=== PATIENT | female | born 1955 | race Caucasian/White ===

== ENCOUNTER → 2019-08-30 08:15 | Outpatient (CLI) | payer MEDICARE, SELFPAY ==
--- NOTE | ~2019-08-30 | XR_ITS ---
EXAMINATION: XR thoracic spine 2V DATE: 08/30/2019 11:07 INDICATION: Back pain TECHNIQUE: AP, lateral and lateral swimmer's views of the thoracic spine were obtained. COMPARISON: None. FINDINGS: The bones are osteopenic which limits the sensitivity for fracture however none is seen. Th e vertebral body heights and alignment are normal. There is mild loss of intervertebral disc space he ight at several levels in the thoracic spine. A vascular stent is noted in the right axilla. Coronary artery stents are also noted. IMPRESSION: 1. Mild osteoarthritis without evidence of acute abnormality. Reviewed, dictated and finalized at location A. Y OPERATOR
--- NOTE | ~2019-08-30 | MR_ITS ---
EXAMINATION: MR thoracic spine wo con EXAM DATE: 08/30/2019 09:11 INDICATION: Mid upper back pain since fall 2018. TECHNIQUE: Multi-sequential, multiplanar MR images of the thoracic spine were obtained without contra st. Sagittal T1, T2, T2 fat saturation, axial T2 weighted images reviewed. There is no prior study for comparison. FINDINGS: There is mild chronic compression fracture superior endplate of T10. There is no more than mild scattered thoracic disc disease. The thoracic central canal and neural foramen are widely patent . Several small vertebral body hemangiomas. There is mild thoracic facet arthropathy. The spinal cord signal intensity and intrinsic morphology is normal. Paraspinal soft tissue is unremarkable. IMPRESSION: 1. T10 mild chronic compression fracture. 2. Mild thoracic spondylosis. Reviewed, dictated and finalized at location A. 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
== END ==
PROVIDERS: Visit Provider Physician Assistant Medical
DX: M47.814 Spondylosis without myelopathy or radiculopathy, thoracic region (principal); S22.070A Wedge compression fracture of T9-T10 vertebra, initial encounter for closed fracture
CPT/HCPCS: 72070; 72146

== ENCOUNTER 2020-01-20 10:04 | Emergency (ER) | payer MEDICARE, SELFPAY ==
--- NOTE | ~2020-01-20 | XR_ITS ---
EXAMINATION: XR chest 1V portable DATE: 01/20/2020 11:28 INDICATION: Fever. TECHNIQUE: A single frontal view of the chest was obtained. COMPARISON: None. FINDINGS: The chest demonstrates clear lungs without pneumonia, pleural effusion, or pneumothorax. Th e heart size is normal. There are old healed right rib fractures. There is a vascular stent overlying the right scapula. IMPRESSION: 1. No acute cardiopulmonary disease. Reviewed, dictated and finalized at location A.
[2020-01-20 10:08] VITALS: BP 109/73; PULSE 97; RESP 16; TEMP 35.8; O2SAT 99
[2020-01-20 11:25] LABS: Basophils Percent Auto 0.3 % (0.2-1.2); Eosinophils Absolute Auto 0.1 K/mm3 (0-0.3); Eosinophils Percent Auto 0.7 % (0-4.4); Hematocrit 37.1 % (37.0-47.0); Immature Granulocyte Absolute 0.07 K/mm3 (0.00-0.031); Immature Granulocyte Percent A 0.6 % (0-0.5); Lymphocytes Absolute Auto 1.32 K/mm3 (0.9-3.2); Lymphocytes Percent Auto 11.1 % (18.3-44.2); Mean Corpuscular HGB Conc 32.3 g/dl (32-36); Mean Corpuscular Hemoglobin 32.6 pg (26-34); Mean Corpuscular Volume 100.8 fl (80-100); Mean Platelet Volume 8.7 fl (7.4-10.4); Monocytes Absolute Auto 1.2 K/mm3 (0.1-0.6); Monocytes Percent Auto 10.2 % (2.6-8.5); Neutrophils Absolute Auto 9.2 K/mm3 (1.3-6.7); Neutrophils Percent Auto 77.1 % (45.5-73.1); Platelet Count Result 408 k/mm3 (150-375); Red Blood Count 3.68 M/mm3 (4.2-5.4); Red Cell Distribution Width 15.2 % (11.5-14.5); White Blood Count 11.9 K/mm3 (4.5-10.0)
[2020-01-20 11:38] LABS: Partial Thromboplastin Time 49.5 SECONDS (22.3-36.8)
[2020-01-20] MEDS: SODIUM CHLORIDE 0.9% IV 500 ML 999 ML IV CONT (11:44)
[2020-01-20 11:45] LABS: Lipase 144 U/L (23-300)
[2020-01-20 11:49] LABS: Alanine Aminotransferase 15 U/L (4-35); Albumin Level 4.2 g/dL (3.5-5.1); Alkaline Phosphatase 90 U/L (38-126); Aspartate Amino Transferase 27 U/L (14-36); Bilirubin,Total 0.4 mg/dL (0.2-1.3); Blood Urea Nitrogen 22 mg/dL (7-17); CRP 3.3 mg/dL (<1.0); Calcium 10.1 mg/dL (8.4-10.2); Carbon Dioxide 18 mmol/L (22-30); Chloride 104 mmol/L (98-107); Estimated CRCL calculation 30 ml/min; Estimated Glomerular Filt Rate 35; Glucose 184 mg/dL (65-105); Potassium 4.6 mmol/L (3.4-5.0); Sodium 133 mmol/L (137-145)
[2020-01-20 11:51] LABS: Add Urine Microscopic? YES; Appearance Urine Cloudy (Clear); Bacteria Urine 4+ /hpf; Bilirubin Urine Negative (Negative); Blood Urine 2+ (Negative); Color Urine Yellow (Yellow); Glucose Urine UA Negative (Negative); Ketones Urine Negative (Negative); Leukocyte Esterase Ur 1+ LEU/UL (Negative); Mucus Urine Rare /lpf; Nitrate Urine Positive (Negative); Protein Urine 2+ mg/dL (Negative); Specific Grav Ur 1.017 (1.001-1.035); Squamous Epithelial Cell Urine Occasional /hpf (Few); Transitional Epi Cells Urine Rare /hpf (None Seen); Urobilinogen Urine Negative mg/dL (<2.0); WBC Urine 31-50 /hpf
[2020-01-20 12:45] VITALS: BP 106/52; PULSE 80; RESP 17; TEMP 37.3; O2SAT 98
[2020-01-20 14:25] VITALS: BP 105/76; PULSE 87; RESP 17; O2SAT 98
--- NOTE | 2020-01-20 15:01 | ED.FEVER ---
HPI - Fever General Chief Complaint: Fever <YELENA Martinez Last Filed: 01/20/20 15:06> Stated Complaint: fever, h/o kidney transplant <YELENA Martinez Last Filed: 01/20/20 15:06> Time Seen by Provider: 01/20/20 10:43 <YELENA Martinez Last Filed: 01/20/20 15:06> Source: patient <YELENA Martinez Last Filed: 01/20/20 15:06> Mode of arrival: ambulatory <YELENA Martinez Last Filed: 01/20/20 15:06> Limitations: no limitations <YELENA Martinez Last Filed: 01/20/20 15:06> History of Present Illness HPI Narrative: Patient is a 64-year-old female who presents to emergency department for evaluation of fever that has been present now off and on for the last several weeks was treated for 3 weeks for urinary tract infection by her transplant team and had a kidney transplant a year ago and is followed by [facility]. Patient on arrival to emergency department denies any pain and notes that she gets intermittent fevers. Patient is concerned that she may still have a urinary tract infection . Patient denies vomiting or other complaints and is resting comfortably in the room upon arrival <YELENA Martinez Last Filed: 01/20/20 15:06> MD elicited complaint: fever <YELENA Martinez Last Filed: 01/20/20 15:06> Related Data Home Medications: Home Medications Medication Instructions Recorded Confirmed aspirin PO 01/20/20 cholecalciferol (vitamin D3) 01/20/20 clopidogrel 01/20/20 duloxetine [Cymbalta] mg PO 01/20/20 famotidine 01/20/20 metformin mg 01/20/20 metoprolol tartrate 01/20/20 mycophenolate sodium PO 01/20/20 prednisone 01/20/20 rosuvastatin mg 01/20/20 sulfamethoxazole-trimethoprim 01/20/20 tacrolimus [Envarsus XR] PO 01/20/20 <YELENA Martinez Last Filed: 01/20/20 15:06> Allergies/Adverse Reactions: Allergies Allergy/AdvReac Type Severity Reaction Status Date / Time levofloxacin Allergy Unknown Swelling Verified 01/20/20 11:19 of Lip/Tongue/Throat <Angelo Shrestha PA-C - Last Filed: 01/20/20 15:06> Review of Systems Review of Systems: All systems reviewed & are unremarkable except as noted in HPI and below <Angelo Shrestha PA-C - Last Filed: 01/20/20 15:06> PMFSH Past Medical History Medical History: Medical History (Updated 01/20/20 @ 15:03 by Angelo Shrestha PA-C) Chronic kidney disease Diabetes mellitus <Angelo Shrestha PA-C - Last Filed: 01/20/20 15:06> Surgical History Surgical History: Surgical History (Updated 01/20/20 @ 15:03 by Angelo Shrestha PA-C) Kidney transplant recipient <Angelo Shrestha PA-C - Last Filed: 01/20/20 15:06> Family History Family History: Family History (Updated 04/23/18 @ 08:48 by DOCTOR UNKNOWN) Other Family history of malignant neoplasm Hypertension <Angelo Shrestha PA-C - Last Filed: 01/20/20 15:06> Social History Social History: Social History Smoking status: Former smoker Smoking end date: 07/16/15 Alcohol intake: never Gender identity (if verbalized by the patient): Female <Angelo Shrestha PA-C - Last Filed: 01/20/20 15:06> Exam Narrative: Exam Narrative: GENERAL: Well-appearing, well-nourished, and in no acute distress. HEAD: Normocephalic, atraumatic. EYES: PERRLA and EOMI. ENT: Nares clear, no rhinorrhea or epistaxis. Mucous membranes moist. Oropharynx without tonsillar hypertrophy exudate or other lesions. NECK: Supple. No adenopathy or masses. CHEST: Clear to auscultation. No respiratory distress. No wheezes rales or rhonchi HEART: Regular rate and rhythm. No murmur heard. Normal peripheral pulses. ABDOMEN: Soft, nontender, nondistended. EXTREMITIES: Normal range of motion. No edema. SKIN: Warm, dry, no rash. NEURO: No focal deficits. Alert and oriented x3. Cranial
[2020-01-20] MEDS: SODIUM CHLORIDE 0.9% IV 1,000 ML 150 ML IV CONT (15:20)
[2020-01-20 15:35] VITALS: TEMP 37.2
--- NOTE | 2020-01-20 15:35 | PC.NURSE ---
Liya access line calls with [facility] [phone] at this time
[2020-01-20 17:42] VITALS: BP 108/76; PULSE 82
[2020-01-20 18:40] VITALS: BP 109/57; PULSE 92; RESP 20; O2SAT 100
== END 2020-01-20 18:41 | disposition short-term general hospital (02) ==
PROVIDERS: Emergency Medicine Emergency Medical Services; Emergency Provider Emergency Medicine; PCP Internal Medicine Rheumatology
DX: N39.0 Urinary tract infection, site not specified (principal); E11.22 Type 2 diabetes mellitus with diabetic chronic kidney disease; N18.9 Chronic kidney disease, unspecified; Z79.84 Long term (current) use of oral hypoglycemic drugs; Z79.82 Long term (current) use of aspirin; Z94.0 Kidney transplant status; Z87.891 Personal history of nicotine dependence
CPT/HCPCS: 36415; 71045; 80053; 81001; 83605; 83690; 85025; 85610; 85730; 86140; 87040; 87077; 87086; 87088; 87186; 96361; 96365; 99285; J0696; J7030; J7040

== ENCOUNTER 2022-01-24 11:08 | Emergency (ER) | payer MEDICARE, SELFPAY ==
[2022-01-24 11:11] VITALS: BP 123/53; PULSE 91; RESP 17; TEMP 36.4; O2SAT 100
--- NOTE | 2022-01-24 12:07 | ED.NAVMDI ---
HPI - Nausea/Vomiting/Diarrhea General Chief complaint: Nausea/Vomiting/Diarrhea Stated complaint: diarrhea for like a month Time Seen by Provider: 01/24/22 12:01 History of Present Illness HPI Narrative: 66-year-old female presents emergency room secondary diarrhea appears been on for approximately a month. She had no associated nausea vomiting with this. Denies any blood in her stool. She states she was on a course of antibiotics before all this started. She states that she is already been seen by her regular physician and had a stool sample obtained. They called in some medication to her pharmacy and she is not sure what those are. However they apparently were not approved by her insurance. She been drinking a lot of Gatorade. She is not taking anything like yogurt or probiotic to try to replenish your gut vaughn. She is concerned because she is a renal transplant patient having undergone a renal transplant in May 2019. She denies any chills or fevers. No one else at home has been sick. She states she just been feeling rundown and fatigued lately. Related Data Home Medications Medication Instructions Recorded Confirmed aspirin 325 mg tablet,delayed PO 01/20/20 release cholecalciferol (vitamin D3) 50 01/20/20 mcg (2,000 unit) capsule clopidogrel 75 mg tablet 01/20/20 duloxetine 60 mg capsule,delayed mg PO 01/20/20 release (Cymbalta) famotidine 20 mg tablet 01/20/20 metformin 500 mg tablet mg 01/20/20 metoprolol tartrate 25 mg tablet 01/20/20 mycophenolate sodium 360 mg PO 01/20/20 tablet,delayed release prednisone 5 mg tablet 01/20/20 rosuvastatin 40 mg tablet mg 01/20/20 sulfamethoxazole 800 01/20/20 mg-trimethoprim 160 mg tablet tacrolimus 1 mg tablet,extended PO 01/20/20 release 24 hr (Envarsus XR) Allergies Allergy/AdvReac Type Severity Reaction Status Date / Time levofloxacin Allergy Unknown Swelling Verified 01/24/22 11:25 of Lip/Tongue/Throat Review of Systems Review of Systems: CONSTITUTIONAL: Denies fever, chills, or sweats. EYES: Denies visual changes, redness, or discharge. ENT: Denies rhinorrhea, congestion, sore throat, or otalgia. CARDIOVASCULAR: Denies chest pain, palpitations, or edema. RESPIRATORY: Denies cough or dyspnea. GASTROINTESTINAL: Denies abdominal pain, nausea, vomiting. Having multiple episodes of diarrhea per day with no blood in GENITOURINARY: Denies dysuria or hematuria. SKIN: Denies rash or itching. MUSCULOSKELETAL: Denies back pain, joint pain, or myalgia. NEUROLOGIC: Denies headache, numbness, or weakness. PSYCHIATRIC: Denies anxiety or depression. PENDING SALE TO [facility] Past Medical History Medical History Chronic kidney disease Diabetes mellitus Surgical History Surgical History Kidney transplant recipient Family History Family History Other Family history of malignant neoplasm Hypertension Social History Social History Smoking status: Former smoker Smoking end date: 07/16/15 Alcohol intake: never Gender identity (if verbalized by the patient): Female Exam Narrative: APPEARANCE: Well appearing, no pain or distress, well-nourished. Head Normocephalic and atraumatic. EYES: PERRLA/EOMI, conjunctivae clear. NOSE: Normal with no drainage EARS:TMS clear with [place], with good light reflex. THROAT: Pharynx clear, no exudate. NECK: Supple. No adenopathy, no masses. RESPIRATORY: Airway patent, respirations nonlabored. Clear to auscultation bilaterally, no rales, rhonchi, wheezing. CARDIOVASCULAR: Regular rate and rhythm without murmurs, rubs, or gallops. ABDOMINAL: Soft, nontender, nondistended, no hepatosplenomegaly Musculoskeletal: Moves all extremities. Strength/ROM intact, No edema, No calf tenderness.
[2022-01-24] MEDS: SODIUM CHLORIDE 0.9% IV 1,000 ML 999 ML IV CONT (12:23)
[2022-01-24 12:31] VITALS: BP 116/52; PULSE 80
[2022-01-24 12:32] VITALS: BP 124/64; PULSE 81
[2022-01-24 12:33] VITALS: BP 100/59; PULSE 86
[2022-01-24 12:36] LABS: Basophils Absolute Auto 0.1 K/mm3 (0.0-0.1); Basophils Percent Auto 0.5 % (0.2-1.2); Eosinophils Absolute Auto 0.2 K/mm3 (0-0.3); Eosinophils Percent Auto 1.6 % (0-4.4); Hematocrit 43.1 % (37.0-47.0); Hemoglobin 13.6 g/dL (12.0-15.0); Immature Granulocyte Absolute 0.06 K/mm3 (0.00-0.031); Immature Granulocyte Percent A 0.4 % (0-0.5); Lymphocytes Absolute Auto 2.68 K/mm3 (0.9-3.2); Mean Corpuscular HGB Conc 31.6 g/dl (32-36); Mean Corpuscular Hemoglobin 30.1 pg (26-34); Mean Corpuscular Volume 95.4 fl (80-100); Mean Platelet Volume 9.1 fl (7.4-10.4); Monocytes Absolute Auto 1.4 K/mm3 (0.1-0.6); Monocytes Percent Auto 10.1 % (2.6-8.5); Neutrophils Absolute Auto 9.6 K/mm3 (1.3-6.7); Neutrophils Percent Auto 68.4 % (45.5-73.1); Platelet Count Result 450 k/mm3 (150-375); Red Blood Count 4.52 M/mm3 (4.2-5.4); White Blood Count 14.1 K/mm3 (4.5-10.0)
[2022-01-24 12:38] LABS: Add Urine Microscopic? YES; Appearance Urine Cloudy (Clear); Bilirubin Urine 1+ (Negative); Blood Urine 2+ (Negative); Color Urine Yellow (Yellow); Glucose Urine UA Trace mg/dL (Negative); Ketones Urine Negative (Negative); Leukocyte Esterase Ur 2+ LEU/UL (Negative); Nitrate Urine Negative (Negative); Protein Urine 1+ mg/dL (Negative); Specific Grav Ur 1.025 (1.001-1.035); Urobilinogen Urine 0.2 mg/dL (<2.0)
[2022-01-24 12:50] LABS: Bacteria Urine 4+ /hpf; Squamous Epithelial Cell Urine Many /hpf (Few); WBC Clumps Urine Present /HPF; WBC Urine >75 /hpf
[2022-01-24 12:50] LABS: Lipase 168 U/L (23-300)
[2022-01-24 13:37] LABS: Alanine Aminotransferase 10 U/L (6-35); Albumin Level 2.3 g/dL (3.5-5.1); Alkaline Phosphatase 43 U/L (38-126); Anion Gap 5 mmol/L (8-16); Aspartate Amino Transferase 24 U/L (14-36); Bilirubin,Total 0.3 mg/dL (0.2-1.3); Blood Urea Nitrogen 30 mg/dL (7-17); Calcium 5.5 mg/dL (8.4-10.2); Carbon Dioxide 16 mmol/L (22-30); Chloride 116 mmol/L (98-107); Estimated CRCL calculation 32 ml/min; Estimated Glomerular Filt Rate 45; Glucose 155 mg/dL (65-110); Potassium 3.1 mmol/L (3.4-5.0); Sodium 137 mmol/L (137-145)
[2022-01-24] MEDS: POTASSIUM CHLORIDE 20 MEQ PACKET (FOR LIQUID) 40 MEQ PO (14:09)
[2022-01-24 16:15] VITALS: BP 107/62; PULSE 70; RESP 18; O2SAT 100
== END 2022-01-24 16:17 | disposition home or self-care (01) ==
PROVIDERS: Emergency Provider Emergency Medicine; PCP Internal Medicine Rheumatology
DX: R19.7 Diarrhea, unspecified (principal); E86.0 Dehydration; E11.9 Type 2 diabetes mellitus without complications; N18.9 Chronic kidney disease, unspecified; Z79.84 Long term (current) use of oral hypoglycemic drugs
CPT/HCPCS: 36415; 80053; 81001; 83690; 85025; 87077; 87086; 87088; 87186; 96361; 96365; 99284; A9270; J0696; J7030

== ENCOUNTER 2022-09-07 11:48 | Emergency (ER) | payer MEDICARE, OTHER, SELFPAY ==
--- NOTE | ~2022-09-07 | XR_ITS ---
XR abdomen/kub 1V 09/07/2022 14:35 Indication: Looking for foreign body. Procedure: Lateral view of the abdomen Comparison: 09/07/2022 Findings: Bowel gas pattern nonobstructive with multiple radiodensities in the bowel. No linear forei gn bodies are identified. There are surgical clips in the pelvis. There is atherosclerosis. Impression: 1: No radiopaque linear foreign bodies are identified. Reviewed, dictated and finalized at location L. OR UX DEVELOPER Impression: 1: No radiopaque linear foreign bodies are identified.
--- NOTE | ~2022-09-07 | XR_ITS ---
XR abdomen/kub 1V 09/07/2022 13:39 Indication: Foreign body. Auto injector needle dislodged. Procedure: KUB Comparison: 04/22/2018 Findings: Bowel gas pattern nonobstructive. Multiple radiodensities are identified in the colon, cons istent with ingested material. Stable sclerotic lesion of the left ilium, most likely bone island. Th ere are surgical clips overlying the right pelvis. There is atherosclerosis of the splenic artery. Th ere is a metallic BB overlying the left upper abdomen of uncertain significance. No needlelike foreig n bodies. Impression: 1: Metallic BB radiodensity left upper abdomen of uncertain significance. 2: Nonobstructive bowel pattern. Reviewed, dictated and finalized at location L. AL TRANSPORTATION MANAGER Impression: 1: Metallic BB radiodensity left upper abdomen of uncertain significance. 2: Nonobstructive bowel pattern.
[2022-09-07 11:53] VITALS: BP 141/48; PULSE 73; RESP 16; TEMP 36.2; O2SAT 100
--- NOTE | 2022-09-07 12:30 | ED.SKABFB ---
HPI - Skin/Abscess/Foreign Bdy General Chief complaint: Skin/Abscess/Foreign Body Stated complaint: insulin needle broke off in skin Time Seen by Provider: 09/07/22 12:29 Source: patient Mode of arrival: ambulatory Limitations: no limitations History of Present Illness HPI narrative: Patient is a 67-year-old female with a history of hypertension, hyperlipidemia, diabetes, presenting to the emergency department for evaluation of foreign body in abdomen. Patient states that she was using her subcutaneous insulin injector when the small needle broke off into her skin overlying the upper abdomen. Patient denies any pain, redness or bleeding. She denies any abdominal pain. She denies nausea or vomiting. Related Data Home Medications Medication Instructions Recorded Confirmed aspirin 325 mg tablet,delayed PO 01/20/20 release cholecalciferol (vitamin D3) 50 01/20/20 mcg (2,000 unit) capsule clopidogrel 75 mg tablet 01/20/20 duloxetine 60 mg capsule,delayed mg PO 01/20/20 release (Cymbalta) famotidine 20 mg tablet 01/20/20 metformin 500 mg tablet mg 01/20/20 metoprolol tartrate 25 mg tablet 01/20/20 mycophenolate sodium 360 mg PO 01/20/20 tablet,delayed release prednisone 5 mg tablet 01/20/20 rosuvastatin 40 mg tablet mg 01/20/20 sulfamethoxazole 800 01/20/20 mg-trimethoprim 160 mg tablet tacrolimus 1 mg tablet,extended PO 01/20/20 release 24 hr (Envarsus XR) Allergies Allergy/AdvReac Type Severity Reaction Status Date / Time levofloxacin Allergy Unknown Swelling Verified 01/24/22 11:25 of Lip/Tongue/Throat Review of Systems Review of Systems: CONSTITUTIONAL: Denies fever, chills, or sweats. ENT: Denies rhinorrhea, congestion, sore throat, or otalgia. CARDIOVASCULAR: Denies chest pain, palpitations, or edema. RESPIRATORY: Denies cough or dyspnea. GASTROINTESTINAL: Denies abdominal pain, nausea, vomiting, or diarrhea. GENITOURINARY: Denies dysuria or hematuria. SKIN: Denies rash or itching. Denies bruising or bleeding MUSCULOSKELETAL: Denies back pain, joint pain, or myalgia. NEUROLOGIC: Denies headache, numbness, or weakness. [facility] Past Medical History Medical History Chronic kidney disease Diabetes mellitus Surgical History Surgical History Kidney transplant recipient Family History Family History Other Family history of malignant neoplasm Hypertension Social History Social History Smoking status: Former smoker Smoking end date: 07/16/15 Alcohol intake: never Gender identity (if verbalized by the patient): Female Exam Narrative: GENERAL: Awake, alert, conversant HEAD: Normocephalic, atraumatic. EYES: PERRLA and EOMI. ENT: Nares clear, no rhinorrhea or epistaxis. Mucous membranes moist. NECK: Supple. CHEST: No respiratory distress, breathing even and non labored HEART: Regular rate, sinus rhythm ABDOMEN:Non distended, non tender. No overlying erythema, no foreign body palpated. No bruising or bleeding. EXTREMITIES: Normal range of motion. No edema. SKIN: Warm, dry, no rash. NEURO:No focal deficits. Alert and oriented x3 Course Vital Signs Vital signs: Vital Signs Temperature 36.2 C L 09/07/22 11:53 Pulse Rate 73 09/07/22 11:53 Respiratory Rate 16 09/07/22 11:53 Blood Pressure 141/48 H 09/07/22 11:53 Pulse Oximetry 100 09/07/22 11:53 Oxygen Delivery Room Air 09/07/22 11:53 Temperature 36.2 C L 09/07/22 11:53 Pulse Rate 73 09/07/22 11:53 Respiratory Rate 16 09/07/22 11:53 Blood Pressure 141/48 H 09/07/22 11:53 Pulse Oximetry 100 09/07/22 11:53 Oxygen Delivery Room Air 09/07/22 11:53 MDM - Skin/Abscess/Foreign Bdy MDM Narrative Medical decision making narrative: History
--- NOTE | 2022-09-07 15:34 | PM.CNGS ---
Assessment and Plan Assessment and plan (1) Sensation of foreign body: Code(s): R68.89 - Other general symptoms and signs Status: Acute Assessment and Plan: No obvious foreign body felt or seen on exam. KUB without correlated foreign body to the needle she describes. We recommended additionally getting a lateral view of the abdomen. I have reviewed the imaging myself and the Radiologist's impression and did not show a foreign body c/w with any needlelike structure in the subcutaneous tissue. I discussed the case with Dr. Sheldon. Okay for her to be sent home and instructed to return if she develops any redness or swelling in this area. (2) CKD (chronic kidney disease) requiring chronic dialysis: Code(s): N18.6 - End stage renal disease; Z99.2 - Dependence on renal dialysis Status: Acute (3) Hemodialysis access site with mature fistula: Code(s): Z99.2 - Dependence on renal dialysis Status: Acute (4) Antiplatelet or antithrombotic long-term use: Code(s): Z79.02 - half-way (current) use of antithrombotics/antiplatelets Status: Acute Plan I have discussed the patient's case and plan of care with Dr. Sheldon. History of Present Illness Consult details Consult date: 09/07/22 Reason for consult: other (Possible foreign body in abdomen) Requesting physician: Alicia Kelsey MD Narrative: This is a 67-year-old diabetic woman with multiple medical problems, who presented to the ER today with concerns of a foreign body in her abdomen. She had used a self-injecting needle with her insulin pen in the left upper abdomen around 11:00 am this morning. She oddly noticed that there was liquid dripping from the pen and when she released the pen from her skin, she did not see a needle on the end of the injector pen. She looked on the floor and did not see a needle. She could not definitively feel a needle in her abdomen, but was concerned it had broken off in her subcutaneous tissue, therefore she came into the ER. The ER pysician was unable to see or feel a foreign body on exam. She had ordered a KUB of the abdomen, which did not show a needlelike foreign body. Our service was consulted for possible foreign body and she was seen in the ER. There is no obvious redness or pain in the area where she had injected herself. No other complaints at this time. Review of Systems Review of Systems: All systems reviewed & are unremarkable except as noted in HPI and below PMFSH Past Medical History Medical History Antiplatelet or antithrombotic long-term use CKD (chronic kidney disease) requiring chronic dialysis Diabetes mellitus Hemodialysis access site with mature fistula Surgical History Surgical History Kidney transplant recipient Family History Family History Other Family history of malignant neoplasm Hypertension Social History Social History Smoking status: Former smoker Smoking end date: 07/16/15 Alcohol intake: never Gender identity (if verbalized by the patient): Female Meds Home Medications and Allergies Home Medications Medication Instructions Recorded Confirmed Type aspirin 325 mg tablet,delayed PO 01/20/20 History release cholecalciferol (vitamin D3) 50 01/20/20 History mcg (2,000 unit) capsule clopidogrel 75 mg tablet 01/20/20 History duloxetine 60 mg capsule,delayed mg PO 01/20/20 History release (Cymbalta) famotidine 20 mg tablet 01/20/20 History metformin 500 mg tablet mg 01/20/20 History metoprolol tartrate 25 mg tablet 01/20/20 History mycophenolate sodium 360 mg PO 01/20/20 History tablet,delayed release prednisone 5 mg tablet 01/20/20 History rosuvastatin 40 mg tablet mg 01/20/20 History sulfamethoxazole 800
== END 2022-09-07 15:30 | disposition home or self-care (01) ==
PROVIDERS: Emergency Provider Emergency Medicine; PCP Internal Medicine Rheumatology
DX: Z04.89 Encounter for examination and observation for other specified reasons (principal); E11.22 Type 2 diabetes mellitus with diabetic chronic kidney disease; I12.0 Hypertensive chronic kidney disease with stage 5 chronic kidney disease or end stage renal disease; N18.6 End stage renal disease; E78.5 Hyperlipidemia, unspecified; Z94.0 Kidney transplant status; Z99.2 Dependence on renal dialysis; Z87.891 Personal history of nicotine dependence; Z79.82 Long term (current) use of aspirin; Z79.84 Long term (current) use of oral hypoglycemic drugs; Z79.4 Long term (current) use of insulin
CPT/HCPCS: 74018; 99283

== ENCOUNTER 2023-01-15 22:54 | Inpatient (IN) | payer MEDICARE, OTHER, SELFPAY ==
--- NOTE | ~2023-01-15 | XR_ITS ---
Portable chest x-ray Comparison: 01/20/2020 Clinical History: Leukocytosis Findings: Lungs are clear, without focal consolidation or pleural effusion. Cardiomediastinal silho uette is stable. Chronic rib fracture deformities are noted. Impression: Clear lungs. Reviewed, dictated and finalized at [facility]. Impression: Clear lungs.
--- NOTE | ~2023-01-15 | CT_ITS ---
EXAMINATION: CT cervical spine wo con DATE: 01/16/2023 02:15 INDICATION: Head injury TECHNIQUE: Computed tomography (CT) of the cervical spine was performed without intravenous contrast. The dose-length product (DLP) was 232.15 mGy-cm. Automated exposure control and iterative reconstruc tion technique were employed. COMPARISON: None FINDINGS: There are 2 mm of retrolisthesis of C5 on C6. There is no fracture. There is moderate loss of intervertebral disc space height at C3-4 and C5-C6. The odontoid process is intact. Small degenera tive osteophytes project from the anterior endplates of multiple vertebral bodies. There is multileve l moderate facet and uncovertebral joint osteoarthritis. IMPRESSION: 1. Moderate cervical spondylosis without acute findings. Reviewed, dictated and finalized at location A.
--- NOTE | ~2023-01-15 | CT_ITS ---
EXAMINATION: CT brain wo con INDICATION: Head injury COMPARISON: None TECHNIQUE: Standard unenhanced head CT. The dose-length product (DLP) was 605.33 mGy-cm. The mA was a djusted according to patient size. Iterative reconstruction technique was employed. FINDINGS: There is no intracranial hemorrhage, acute infarction, or abnormal mass lesion. The ventric les are normal. There is no abnormal mass effect or midline shift. The orozco-white matter differentiat ion is normal. The basal cisterns are patent. Calcified intracranial atherosclerosis is noted. Change s in the left globe are likely from ocular lens surgery. There is mild mucosal thickening of the para nasal sinuses. IMPRESSION: 1. No acute intracranial abnormality. Reviewed, dictated and finalized at location A.
--- NOTE | ~2023-01-15 | US_ITS ---
EXAMINATION: US renal BI DATE: 01/17/2023 09:16 INDICATION: Kidney disease. TECHNIQUE: Multiple ultrasound grayscale images of the kidneys were obtained. COMPARISON: None. FINDINGS: The right kidney measures 8.0 x 4.8 x 4.2 cm. The left kidney measures 8.0 x 4.2 x 4.3 cm. The kidney s demonstrate increased parenchymal echogenicity, consistent with nonspecific nephropathy. There is n o hydronephrosis. The bladder is decompressed. There is a transplant kidney in the right pelvis measuring 11.2 x 5.6 x 4.8 cm. No hydronephrosis. IMPRESSION: 1. Normal transplant kidney. No hydronephrosis. Reviewed, dictated and finalized at location A.
[2023-01-15 23:02] VITALS: BP 110/58; PULSE 102; RESP 14; TEMP 37.4; O2SAT 100
[2023-01-15 23:05] LABS: Glucose Point of Care 401 mg/dl (65-105)
[2023-01-15 23:27] LABS: Basophils Absolute Auto 0.1 K/mm3 (0.0-0.1); Basophils Percent Auto 0.5 % (0.2-1.2); Eosinophils Absolute Auto 0.3 K/mm3 (0-0.3); Eosinophils Percent Auto 1.4 % (0-4.4); Hematocrit 40.7 % (37.0-47.0); Hemoglobin 13.7 g/dL (12.0-15.0); Immature Granulocyte Percent A 0.5 % (0-0.5); Lymphocytes Absolute Auto 3.91 K/mm3 (0.9-3.2); Lymphocytes Percent Auto 20.6 % (18.3-44.2); Mean Corpuscular HGB Conc 33.7 g/dl (32-36); Mean Corpuscular Hemoglobin 30.9 pg (26-34); Mean Corpuscular Volume 91.7 fl (80-100); Mean Platelet Volume 9.4 fl (7.4-10.4); Monocytes Absolute Auto 1.9 K/mm3 (0.1-0.6); Monocytes Percent Auto 9.8 % (2.6-8.5); Neutrophils Absolute Auto 12.8 K/mm3 (1.3-6.7); Neutrophils Percent Auto 67.2 % (45.5-73.1); Platelet Count Result 381 k/mm3 (150-375); Red Blood Count 4.44 M/mm3 (4.2-5.4); Red Cell Distribution Width 13.3 % (11.5-14.5)
[2023-01-15 23:36] LABS: Alanine Aminotransferase 31 U/L (6-35); Albumin Level 4.3 g/dL (3.5-5.1); Alkaline Phosphatase 164 U/L (38-126); Anion Gap 8 mmol/L (8-16); Aspartate Amino Transferase 33 U/L (14-36); Bilirubin,Total 0.6 mg/dL (0.2-1.3); Blood Urea Nitrogen 37 mg/dL (7-17); Calcium 9.9 mg/dL (8.4-10.2); Carbon Dioxide 26 mmol/L (22-30); Chloride 94 mmol/L (98-107); Estimated CRCL calculation 24 ml/min; Estimated Glomerular Filt Rate 32; Glucose 366 mg/dL (65-110); Magnesium 2.2 mg/dL (1.6-2.3); Phosphorus 3.1 mg/dL (2.5-4.5); Sodium 128 mmol/L (137-145)
[2023-01-15 23:39] LABS: Beta-Hydroxybutyrate/Acetoacetate 0.16 mmol/L (0.02-0.27)
[2023-01-15 23:51] VITALS: BP 120/78; PULSE 99; RESP 23; TEMP 36.6; O2SAT 98
[2023-01-16] VITALS (22 sets, daily range): BP systolic 93–121; BP diastolic 48–73; PULSE 65–97; RESP 13–26; TEMP 36.1–36.6; O2SAT 95–100; BMI 25.0
[2023-01-16 01:17] LABS: Appearance Urine Cloudy (Clear); Bilirubin Urine Negative (Negative); Blood Urine 1+ (Negative); Color Urine Yellow (Yellow); Glucose Urine UA 3+ mg/dL (Negative); Ketones Urine Negative (Negative); Leukocyte Esterase Ur 2+ LEU/UL (Negative); Need Manual Microscopic Reviewed; Nitrate Urine Positive (Negative); Non Pathogenic Casts 0-2; Protein Urine 1+ mg/dL (Negative); RBC Urine 0-2 /hpf (0-2); Specific Grav Ur 1.017 (1.001-1.035); Squamous Epithelial Cell Urine None seen /hpf (Few); Urobilinogen Urine 0.2 mg/dL (<2.0); WBC Urine >100 /hpf; pH Urine 5.5 (5.0-9.0)
[2023-01-16 01:20] LABS: Bacteria Urine 2+ /hpf
[2023-01-16 01:21] LABS: Budding Yeast Urine Present /hpf
[2023-01-16 01:22] LABS: Add Urine Microscopic? YES
--- NOTE | 2023-01-16 01:28 | ED.RECABL ---
HPI - Recheck/Abnormal Lab/Rx General Chief Complaint: Recheck/Abnormal Lab/Rx <Deann Rich PA-C - Last Filed: 01/16/23 03:27> Stated Complaint: high BS <Deann Rich PA-C - Last Filed: 01/16/23 03:27> Time Seen by Provider: 01/16/23 01:08 <Deann Rich PA-C - Last Filed: 01/16/23 03:27> Source: patient and family <Deann Rich PA-C - Last Filed: 01/16/23 03:27> Mode of arrival: wheelchair <YELENA Soni Last Filed: 01/16/23 03:27> Limitations: altered mental status <Deann Rich PA-C - Last Filed: 01/16/23 03:27> History of Present Illness HPI narrative: This is a 67-year-old female that presents to the emergency department for elevated blood sugars. Her daughter also reports she has been confused. Reports she had sustained a couple of falls yesterday. She does believe that she hit her head. She does not think that she lost consciousness. She reports that she lost her balance causing her to fall. She reports some neck pain. She denies any other focal injuries from her falls. <Deann Rich PA-C - Last Filed: 01/16/23 03:27> Related Data Home Medications: Home Medications Medication Instructions Recorded Confirmed aspirin 325 mg tablet,delayed PO 01/20/20 release cholecalciferol (vitamin D3) 50 01/20/20 mcg (2,000 unit) capsule clopidogrel 75 mg tablet 01/20/20 duloxetine 60 mg capsule,delayed mg PO 01/20/20 release (Cymbalta) famotidine 20 mg tablet 01/20/20 metformin 500 mg tablet mg 01/20/20 metoprolol tartrate 25 mg tablet 01/20/20 mycophenolate sodium 360 mg PO 01/20/20 tablet,delayed release prednisone 5 mg tablet 01/20/20 rosuvastatin 40 mg tablet mg 01/20/20 sulfamethoxazole 800 01/20/20 mg-trimethoprim 160 mg tablet tacrolimus 1 mg tablet,extended PO 01/20/20 release 24 hr (Envarsus XR) <Deann Rich PA-C - Last Filed: 01/16/23 03:27> Allergies/Adverse Reactions: Allergies Allergy/AdvReac Type Severity Reaction Status Date / Time levofloxacin Allergy Unknown Swelling Verified 01/24/22 11:25 of Lip/Tongue/Throat <Deann Rich PA-C - Last Filed: 01/16/23 03:27> Review of Systems Review of Systems: ROS unobtainable: Yes unobtainable due to mental status <Deann Rich PA-C - Last Filed: 01/16/23 03:27> PMFSH Past Medical History Medical History: Medical History Antiplatelet or antithrombotic long-term use CKD (chronic kidney disease) requiring chronic dialysis Diabetes mellitus Hemodialysis access site with mature fistula <YELENA Soni Last Filed: 01/16/23 03:27> Surgical History Surgical History: Surgical History Kidney transplant recipient <Deann Rich PA-C - Last Filed: 01/16/23 03:27> Family History Family History: Family History Other Family history of malignant neoplasm Hypertension <YELENA Soni Last Filed: 01/16/23 03:27> Social History Social History: Social History Smoking status: Former smoker Smoking end date: 07/16/15 Alcohol intake: never Gender identity (if verbalized by the patient): Female <YELENA Soni Last Filed: 01/16/23 03:27> Exam Narrative: GENERAL: Well-appearing, well-nourished, and in no acute distress. HEAD: Normocephalic, atraumatic. EYES: PERRLA and EOMI. ENT: Nares clear, no rhinorrhea or epistaxis. Mucous membranes moist. Oropharynx without tonsillar hypertrophy exudate or other lesions. Bilateral TMs pearly orozco non-bulging NECK: Supple. No adenopathy or masses. Tender to palpation of midline cervical spine CHEST: Clear to auscultation. No respiratory distress. No wheezes rales or rhonchi HEART: Regular rate and rhy
[2023-01-16] MEDS: SODIUM CHLORIDE 0.9% IV 1,000 ML 999 ML IV CONT ×2 (01:43→02:57)
[2023-01-16 02:01] LABS: Lactic Acid Reflex 2.4 mmol/L (0.7-2.0)
[2023-01-16 04:44] LABS: Reflex Lactic Acid Yes or No Add Lactic
--- NOTE | 2023-01-16 06:22 | ADMGEN ---
This patient, Alissa Ambriz, was admitted to [facility] Surg Room 332-01. Patient/family oriented to hospital policies and general routines including ID bracelet, bed and alarms, visiting hours, pain management, procedures, bathroom and other care routines, personal items, smoking policy, room service/diet, and visiting hours. Information on how to activate the Rapid Response Team has been discussed. Patient/Family are encouraged to report perceived risks to care and to ask questions if they do not understand what they are told or what they should do.
[2023-01-16 09:54] LABS: Glucose Point of Care 330 mg/dl (65-105)
[2023-01-16 11:21] LABS: Glucose Point of Care 494 mg/dl (65-105)
--- NOTE | 2023-01-16 11:27 | PC.NURSE ---
1119: PRODUCT TESTER FIBERGLASS called/left voice message and notified of patient blood glucose levels for breakfast and lunch and that home medications needed to be restarted.
[2023-01-16] MEDS: INSULIN ASPART (*BKC) 100 UNITS/ML SUB-Q ×4 (12:11→20:08)
--- NOTE | 2023-01-16 12:19 | PC.NURSE ---
Per face to face with Bernarda AUTISM MOTOR SPECIALIST at bedside, patient was given 12 units of insulin. AUTISM MOTOR SPECIALIST to review protocol and make any needed changes to the order.
[2023-01-16 12:51] LABS: Hemoglobin A1C 13.1 % (<5.7)
--- NOTE | 2023-01-16 15:13 | PM.IMHP ---
H&P: HPI History of Present Illness Date/Time: 01/16/23 15:13 Chief Complaint: AMS Narrative: This is a 67 year old female who presents to the ED with complaints of altered mentation, dizziness, and falls. She has a PMH of ESRD 2/2 Lupus for which she underwent a right renal transplant 4 years ago at [facility], diabetes type 2, hypertension, mi in 2018 with stents, anxiety and depression, and hyperlipidemia. She says she does not remember being confused but her daughter was concerned because she was saying off the wall things. She does remember having dizziness, chills, and falls though. She also reports urinary frequency but denies dysuria. She denies headache, chest pain, shortness a breath, productive cough, nausea and vomiting. She does say that she had 2 episodes of diarrhea yesterday. She follows with [facility]rology [facility], her PCP is Felicia See with [facility], and she follows with Endocrine Dr. Odell at [facility]. I requested records from Transplant Nephrology at [facility] so we can establish her baseline creatinine. I also spoke with ID pharmacist for assistance with prescribing IV antibiotics and he recommend ceftriaxone 2 g b.i.d. while we wait for culture. Last year in January she had a positive culture for Klebsiella. She also was found to be hyperglycemic on admission. She is not sure of her A1c but it sounds like she does not control her diabetes as well as she should because she says that her cutter aluminum sheet's always tries to scare her into managing her diabetes better. Sugar on arrival was in the 400s. We will get an A1c and we have her on high-dose sliding scale insulin with 18 units of Lantus at bedtime per her home regimen. Consult health promotion educator for assistance. For her antirejection medication she normally takes in Envarsus 3 mg daily. That is not on formulary here so instead we are going to transition her to tacrolimus the short-acting medication at 2 mg b.i.d.. Tacro level is ordered for the morning. Review of Systems Review of Systems: All systems reviewed & are unremarkable except as noted in HPI and below PMFSH Past Medical History Medical History (Updated 01/16/23 @ 15:37 by Bernarda Rubio, MARILY) Antiplatelet or antithrombotic long-term use CKD (chronic kidney disease) requiring chronic dialysis Diabetes mellitus Hemodialysis access site with mature fistula Surgical History Surgical History History of heart artery stent Kidney transplant recipient Family History Family History Other Family history of malignant neoplasm Hypertension Social History Social History Smoking status: Former smoker Smoking end date: 07/16/15 Alcohol intake: never Substance use: never Lack of Transportation: No Lack of Food: Never True Current Housing: I Have Housing Concerned About Future Housing: No Difficulty Paying Gas/Electric Bills: No Difficulty Paying for Meds: No Currently Unemployed: No Education: High School Diploma/GED Difficulty w/ Childcare or Family Care: No Gender identity (if verbalized by the patient): Female Spiritual care concerns: No Meds Home Medications and Allergies Home Medications Medication Instructions Recorded Confirmed Type aspirin 325 mg tablet,delayed 325 mg PO DAILY 01/20/20 01/16/23 History release cholecalciferol (vitamin D3) 50 50 mcg PO DAILY 01/20/20 01/16/23 History mcg (2,000 unit) capsule clopidogrel 75 mg tablet 75 mg PO DAILY 01/20/20 01/16/23 History duloxetine 60 mg capsule,delayed 60 mg PO DAILY 01/20/20 01/16/23 History release (Cymbalta) famotidine 20 mg tablet 20 mg PO DAILY 01/20/20 01/16/23 History metoprolol tartrate 25 mg tablet 12.5 mg PO BID 01/20/20 01/16/23 History prednisone 5 mg tablet 5 mg PO DAILY 01/20/20 01/16/23 History rosuvastati
[2023-01-16] MEDS: SODIUM CHLORIDE 0.9% IV 500 ML IV CONT (16:40)
[2023-01-16] MEDS: TACROLIMUS 0.5 MG CAPSULE 2 MG PO (16:45)
[2023-01-16 17:02] LABS: Basophils Absolute Auto 0.1 K/mm3 (0.0-0.1); Basophils Percent Auto 0.7 % (0.2-1.2); Eosinophils Absolute Auto 0.3 K/mm3 (0-0.3); Eosinophils Percent Auto 2.6 % (0-4.4); Hemoglobin 13.4 g/dL (12.0-15.0); Immature Granulocyte Absolute 0.05 K/mm3 (0.00-0.031); Immature Granulocyte Percent A 0.5 % (0-0.5); Lymphocytes Absolute Auto 2.56 K/mm3 (0.9-3.2); Lymphocytes Percent Auto 23.9 % (18.3-44.2); Mean Corpuscular HGB Conc 31.9 g/dl (32-36); Mean Corpuscular Hemoglobin 30.6 pg (26-34); Mean Corpuscular Volume 95.9 fl (80-100); Mean Platelet Volume 9.3 fl (7.4-10.4); Monocytes Absolute Auto 1.4 K/mm3 (0.1-0.6); Monocytes Percent Auto 13.4 % (2.6-8.5); Neutrophils Absolute Auto 6.3 K/mm3 (1.3-6.7); Neutrophils Percent Auto 58.9 % (45.5-73.1); Platelet Count Result 335 k/mm3 (150-375); Red Blood Count 4.38 M/mm3 (4.2-5.4); Red Cell Distribution Width 13.5 % (11.5-14.5); White Blood Count 10.7 K/mm3 (4.5-10.0)
[2023-01-16 17:05] LABS: Glucose Point of Care 326 mg/dl (65-105)
[2023-01-16 17:19] LABS: Alanine Aminotransferase 24 U/L (6-35); Albumin Level 3.5 g/dL (3.5-5.1); Alkaline Phosphatase 98 U/L (38-126); Anion Gap 11 mmol/L (8-16); Aspartate Amino Transferase 27 U/L (14-36); Bilirubin,Total 0.6 mg/dL (0.2-1.3); Blood Urea Nitrogen 27 mg/dL (7-17); Calcium 8.8 mg/dL (8.4-10.2); Carbon Dioxide 21 mmol/L (22-30); Chloride 103 mmol/L (98-107); Estimated CRCL calculation 25 ml/min; Estimated Glomerular Filt Rate 35; Glucose 334 mg/dL (65-110); Sodium 135 mmol/L (137-145)
[2023-01-16] MEDS: cefTRIAXone 2 GM/NS 100 ML 2 GM/100 ML BAG IVPB (17:55)
[2023-01-16] MEDS: SODIUM CHLORIDE 0.9% IV 1,000 ML 100 ML IV CONT (17:56)
[2023-01-16 19:49] LABS: Glucose Point of Care 299 mg/dl (65-105)
[2023-01-16] MEDS: METOPROLOL TARTRATE 12.5 MG TABLET PO (20:07)
[2023-01-16] MEDS: ROSUVASTATIN 10 MG TABLET 40 MG PO (20:07)
[2023-01-16] MEDS: INSULIN GLARGINE (*BKC) 100 UNITS/ML 18 UNITS SUB-Q (20:08)
[2023-01-17] VITALS (9 sets, daily range): BP systolic 124–171; BP diastolic 57–85; PULSE 61–69; RESP 16–18; TEMP 35.6–36.6; O2SAT 99–100; BMI 25.0
[2023-01-17] MEDS: SODIUM CHLORIDE 0.9% IV 1,000 ML 100 ML IV CONT ×2 (05:34→17:12)
[2023-01-17] MEDS: cefTRIAXone 2 GM/NS 100 ML 2 GM/100 ML BAG IVPB (05:34)
[2023-01-17 05:57] LABS: Basophils Absolute Auto 0.1 K/mm3 (0.0-0.1); Basophils Percent Auto 0.6 % (0.2-1.2); Eosinophils Absolute Auto 0.4 K/mm3 (0-0.3); Eosinophils Percent Auto 4.5 % (0-4.4); Hematocrit 38.4 % (37.0-47.0); Hemoglobin 12.1 g/dL (12.0-15.0); Immature Granulocyte Absolute 0.04 K/mm3 (0.00-0.031); Immature Granulocyte Percent A 0.5 % (0-0.5); Lymphocytes Absolute Auto 2.11 K/mm3 (0.9-3.2); Mean Corpuscular HGB Conc 31.5 g/dl (32-36); Mean Corpuscular Hemoglobin 30.3 pg (26-34); Mean Platelet Volume 9.7 fl (7.4-10.4); Monocytes Absolute Auto 1.1 K/mm3 (0.1-0.6); Monocytes Percent Auto 12.9 % (2.6-8.5); Neutrophils Absolute Auto 4.8 K/mm3 (1.3-6.7); Neutrophils Percent Auto 56.5 % (45.5-73.1); Platelet Count Result 323 k/mm3 (150-375); Red Cell Distribution Width 13.7 % (11.5-14.5); White Blood Count 8.5 K/mm3 (4.5-10.0)
[2023-01-17 06:09] LABS: Alanine Aminotransferase 22 U/L (6-35); Albumin Level 3.2 g/dL (3.5-5.1); Alkaline Phosphatase 94 U/L (38-126); Anion Gap 8 mmol/L (8-16); Aspartate Amino Transferase 25 U/L (14-36); Bilirubin,Total 0.4 mg/dL (0.2-1.3); Blood Urea Nitrogen 23 mg/dL (7-17); Calcium 8.3 mg/dL (8.4-10.2); Carbon Dioxide 21 mmol/L (22-30); Chloride 108 mmol/L (98-107); Estimated CRCL calculation 27 ml/min; Estimated Glomerular Filt Rate 38; Glucose 288 mg/dL (65-110); Phosphorus 4.3 mg/dL (2.5-4.5); Potassium 4.2 mmol/L (3.4-5.0); Sodium 137 mmol/L (137-145)
[2023-01-17 08:13] LABS: Glucose Point of Care 286 mg/dl (65-105)
[2023-01-17] MEDS: predniSONE 5 MG TABLET PO (08:15)
[2023-01-17] MEDS: ASPIRIN 325 MG ENTERIC TABLET PO (08:15)
[2023-01-17] MEDS: CLOPIDOGREL BISULFATE 75 MG TABLET PO (08:15)
[2023-01-17] MEDS: FAMOTIDINE 20 MG TABLET PO (08:15)
[2023-01-17] MEDS: CHOLECALCIFEROL 1,000 UNITS TABLET 2000 UNITS PO (08:15)
[2023-01-17] MEDS: DULoxetine HCL 30 MG CAPSULE.DR 90 MG PO (08:16)
[2023-01-17] MEDS: METOPROLOL TARTRATE 12.5 MG TABLET PO ×2 (08:16→20:14)
--- NOTE | 2023-01-17 09:20 | PM.IMPN ---
Progress Note: A&P Assessment and Plan (1) Acute metabolic encephalopathy: Code(s): G93.41 - Metabolic encephalopathy Status: Acute Assessment and Plan: Patient is awake, alert, oriented and feels back to baseline status. This problem is seemingly resolved, likely related to UTI with presentation of sepsis. (2) Acute UTI: Code(s): N39.0 - Urinary tract infection, site not specified Status: Acute Assessment and Plan: Urine culture shows Enterobacter, sensitivities pending. Rocephin changed to cefepime. Will follow sensitivities for appropriate oral antibiotics upon discharge (3) Sepsis: Qualifiers: Sepsis acute organ dysfunction status: without acute organ dysfunction Sepsis type: sepsis due to unspecified organism Qualified Code(s): A41.9 - Sepsis, unspecified organism Code(s): A41.9 - Sepsis, unspecified organism Status: Acute Assessment and Plan: Appears to be related to urinary tract infection. Lactic acidosis has resolved. White blood cell count is now normal. Stable vital signs. (4) Kidney transplant recipient: Code(s): Z94.0 - Kidney transplant status Status: Acute Assessment and Plan: Kidney transplant 4 years ago. Renal ultrasound unremarkable today. Prograf resumed and trough in process. (5) Diabetes mellitus: Code(s): E11.9 - Type 2 diabetes mellitus without complications Status: Acute Assessment and Plan: Poor glycemic control with hemoglobin A1c of 13.1. Restarted mealtime short-acting insulin as well as high-dose correction basal Lantus. (6) History of heart artery stent: Code(s): Z95.5 - Presence of coronary angioplasty implant and graft Status: Acute Assessment and Plan: Stable, no complaints of chest pain or shortness for breath. No swelling. Continue home medications. Time Spent With Patient Time with patient: Greater than 35 minutes Subjective Date/time seen: 01/17/23 09:20 Interval history: This is a 67-year-old female patient with a history lupus, type 2 diabetes, hypertension, mi with stents, anxiety, depression, hyperlipidemia and renal transplant 4 years ago who was admitted to the hospital due to altered mentation dizziness and falls. During workup patient was found to have evidence of urinary tract infection. Previously patient has had Klebsiella in the urine. She was initiated on Rocephin while awaiting urine culture. This morning culture indicates Enterobacter and after discussion with ID pharmacist antibiotics were changed to cefepime. Additionally, remainder of home medications was restarted. Patient reports poor glycemic control with her diabetes with A1c of 13.1 and blood sugars in the 400s upon admission to the hospital. Patient reports that she feels back to baseline and ready for discharge. Review of Systems Review of Systems: All systems reviewed & are unremarkable except as noted in HPI and below Cardiovascular: Cardiovascular: Denies chest pain, Denies leg edema, Denies lightheadedness and Denies palpitations Respiratory: Respiratory: Denies cough, Denies dyspnea and Denies wheezing Gastrointestinal: Gastrointestinal: Denies abdominal pain, Denies melena, Denies constipation, Denies diarrhea, Denies nausea and Denies vomiting Genitourinary: Genitourinary: Denies urinary frequency, Denies nocturia, Denies urinary incontinence, Denies urinary hesitancy and Denies urinary urgency Psychiatric: Comments: feels back to baseline Exam Narrative: General:? well-nourished, well-appearing 67-year-old female,? sitting up in bed, comfortable Neuro: awake, alert and oriented x4, speech clear, no focal neuro deficits noted HEENMT:? normocephalic, atraumatic, EOMI, sclerae anicteric, moist oral mucosa Respiratory:? Clear to auscultation bilaterally without crackles, rhonchi or wheezes, nonlabored breathing Cardio: regular rate, regular rhythm with S1-S2
[2023-01-17] MEDS: TACROLIMUS 0.5 MG CAPSULE 2 MG PO ×2 (10:41→17:12)
[2023-01-17 11:57] LABS: Glucose Point of Care 415 mg/dl (65-105)
--- NOTE | 2023-01-17 12:14 | PM.CNNEP ---
Assessment and Plan Assessment and plan (1) Status post kidney transplant: Code(s): Z94.0 - Kidney transplant status Status: Acute Assessment and Plan: received renal transplant in 2019 baseline creatinine seems to run 1.2 - 1.5mg/dl continue current immunosuppression medications (with associated changes due to availability) if necessary, consider having patient bring her Envarus from home (to ensure stability in outpatient immunosuppressive medications) renal ultrasound noted continue supportive therapy (2) Acute UTI: Code(s): N39.0 - Urinary tract infection, site not specified Status: Acute Assessment and Plan: admission UA highly suggestive follow urine culture results on antibiotic therapy (3) Sepsis: Qualifiers: Sepsis acute organ dysfunction status: without acute organ dysfunction Sepsis type: sepsis due to unspecified organism Qualified Code(s): A41.9 - Sepsis, unspecified organism Code(s): A41.9 - Sepsis, unspecified organism Status: Acute Assessment and Plan: suggestive based on low BP, lactic acidosis, and elevated WBC lactic acid improved s/p IVF resuscitation follow culture data on antibiotics (4) Altered mental status: Code(s): R41.82 - Altered mental status, unspecified Status: Acute Assessment and Plan: resolved/resolving presumably due to acute infection/UTI follow mentation (5) Diabetes mellitus: Code(s): E11.9 - Type 2 diabetes mellitus without complications Status: Acute Assessment and Plan: follow accu-cheks glycemic control per hospitalists I will continue to follow patient with you while she remains hospitalized and make further recommendations as needed. Thank you for allowing me to participate in the care of this patient. History of Present Illness Reason for Consult Consult date: 01/17/23 Reason for consult: Other (S/P renal transplant) Chief Complaint Chief complaint: uti sepsis History of Present Illness Narrative: The patient is a 67-year-old female with a past medical history as outlined below who presented to [facility] Emergency Room for further evaluation of altered mental status in association with dizziness and falls. The patient states that she does not recall being confused or altered but her daughter noted that she was making nonsensical statements. She does recall feeling somewhat dizzy in association with chills and some on and off falls. She also reports increased urinary frequency but denies dysuria. She reported no overt fevers or chills but she is on immunosuppressive therapy. Given the altered mental status and other associated symptoms, she presented to the ER for further assessment. Workup and evaluation emergency room demonstrated the patient to be hemodynamically stable and in no acute distress. Her mentation seemed to be back to baseline. Routine blood test demonstrated a normal CBC and chemistry that showed mild renal insufficiency even no critical electrolyte abnormalities. Her urinalysis was highly suggestive of urinary tract infection and was noted that her blood sugars were quite elevated as well. Given her immunocompromised status, appropriate cultures were obtained and she was started on IV antibiotic therapy with subsequent admission to the hospital for further evaluation and therapy. Renal consultation was requested due to her known history of end-stage renal disease status post renal transplantation. She follows with [facility] for management of her renal transplant. She tells me that she saw them about a month ago and was told that her kidney function was stable. For review of her records here at [facility], it would seem that her baseline creatinine runs around 1.2-1.5 mg/dL and she was able to show me on her phone that her last creatinine a month ago was 1.53 mg/dL. She is compliant with her i
[2023-01-17] MEDS: INSULIN ASPART (*BKC) 100 UNITS/ML SUB-Q ×3 (12:29→20:15)
[2023-01-17] MEDS: INSULIN ASPART (*BKC) 100 UNITS/ML 6 UNITS SUB-Q ×2 (12:30→17:13)
[2023-01-17] MEDS: CEFEPIME 1 GM/NS 50 ML 1 GM/50 ML BAG IVPB (13:41)
[2023-01-17] MEDS: ONDANSETRON INJ 4 MG/2 ML VIAL IV PUSH (15:10)
[2023-01-17 16:23] LABS: Glucose Point of Care 360 mg/dl (65-105)
--- NOTE | 2023-01-17 16:26 | PC.NURSE ---
This RN was told by Zuppler that pt blood sugar was in low 100s at time of admission of 332-2. No sliding scale given. Lunch blood sugar was 415. Called ANODE ADJUSTER and let him know why sliding scale was not given. Informed him of BG at this time, need for home insulin with meals to be resumed. ANODE ADJUSTER agreeable and ordered to give 14u novolog at this time (8u slide; 6u c meals). Will continue to monitor.
--- NOTE | 2023-01-17 18:25 | ADMGEN ---
This patient, Alissa Ambriz, was admitted to [facility] Surg Room 332-01. Patient/family oriented to hospital policies and general routines including ID bracelet, bed and alarms, visiting hours, pain management, procedures, bathroom and other care routines, personal items, smoking policy, room service/diet, and visiting hours. Information on how to activate the Rapid Response Team has been discussed. Patient/Family are encouraged to report perceived risks to care and to ask questions if they do not understand what they are told or what they should do.
[2023-01-17] MEDS: ROSUVASTATIN 10 MG TABLET 40 MG PO (20:14)
[2023-01-17] MEDS: INSULIN GLARGINE (*BKC) 100 UNITS/ML 18 UNITS SUB-Q (20:15)
[2023-01-17 20:18] LABS: Glucose Point of Care 259 mg/dl (65-105)
[2023-01-18] VITALS (8 sets, daily range): BP systolic 104–143; BP diastolic 45–58; PULSE 54–64; RESP 16–20; TEMP 35.8–36.9; O2SAT 97–100
[2023-01-18] MEDS: SODIUM CHLORIDE 0.9% IV 1,000 ML 100 ML IV CONT (05:45)
[2023-01-18 06:09] LABS: Basophils Absolute Auto 0.1 K/mm3 (0.0-0.1); Basophils Percent Auto 0.6 % (0.2-1.2); Eosinophils Absolute Auto 0.3 K/mm3 (0-0.3); Hematocrit 34.9 % (37.0-47.0); Immature Granulocyte Absolute 0.04 K/mm3 (0.00-0.031); Immature Granulocyte Percent A 0.5 % (0-0.5); Lymphocytes Absolute Auto 2.74 K/mm3 (0.9-3.2); Mean Corpuscular HGB Conc 31.5 g/dl (32-36); Mean Corpuscular Hemoglobin 30.6 pg (26-34); Mean Corpuscular Volume 97.2 fl (80-100); Mean Platelet Volume 9.6 fl (7.4-10.4); Monocytes Absolute Auto 0.9 K/mm3 (0.1-0.6); Monocytes Percent Auto 10.5 % (2.6-8.5); Neutrophils Absolute Auto 4.6 K/mm3 (1.3-6.7); Neutrophils Percent Auto 53.4 % (45.5-73.1); Platelet Count Result 307 k/mm3 (150-375); Red Blood Count 3.59 M/mm3 (4.2-5.4); Red Cell Distribution Width 13.2 % (11.5-14.5); White Blood Count 8.6 K/mm3 (4.5-10.0)
[2023-01-18 07:20] LABS: Glucose Point of Care 91 mg/dl (65-105)
[2023-01-18] MEDS: TACROLIMUS 0.5 MG CAPSULE 2 MG PO (09:01)
[2023-01-18] MEDS: CHOLECALCIFEROL 1,000 UNITS TABLET 2000 UNITS PO (09:02)
[2023-01-18] MEDS: CLOPIDOGREL BISULFATE 75 MG TABLET PO (09:02)
[2023-01-18] MEDS: predniSONE 5 MG TABLET PO (09:02)
[2023-01-18] MEDS: DULoxetine HCL 30 MG CAPSULE.DR 90 MG PO (09:02)
[2023-01-18] MEDS: METOPROLOL TARTRATE 12.5 MG TABLET PO (09:02)
[2023-01-18] MEDS: FAMOTIDINE 20 MG TABLET PO (09:02)
[2023-01-18] MEDS: ASPIRIN 325 MG ENTERIC TABLET PO (09:02)
[2023-01-18] MEDS: CEFEPIME 1 GM/NS 50 ML 1 GM/50 ML BAG IVPB (11:36)
[2023-01-18] MEDS: INSULIN ASPART (*BKC) 100 UNITS/ML 6 UNITS SUB-Q (11:37)
[2023-01-18 11:43] LABS: Glucose Point of Care 188 mg/dl (65-105)
[2023-01-18] MEDS: INSULIN ASPART (*BKC) 100 UNITS/ML SUB-Q (11:43)
[2023-01-18 11:44] LABS: Anion Gap 8 mmol/L (8-16); Blood Urea Nitrogen 20 mg/dL (7-17); Calcium 8.1 mg/dL (8.4-10.2); Carbon Dioxide 23 mmol/L (22-30); Chloride 109 mmol/L (98-107); Estimated CRCL calculation 29 ml/min; Estimated Glomerular Filt Rate 41; Glucose 89 mg/dL (65-110); Potassium 4.1 mmol/L (3.4-5.0); Sodium 140 mmol/L (137-145)
--- NOTE | 2023-01-18 12:39 | PM.DS ---
DS: Admitting Diagnosis Discharge Date 01/18/2023 Admitting Diagnosis Metabolic encephalopathy Acute UTI Sepsis Kidney transplant recipient Type 2 diabetes History of heart artery stent DS: Discharge Diagnosis Discharge Diagnosis (1) Acute metabolic encephalopathy: Code(s): G93.41 - Metabolic encephalopathy Status: Acute Assessment and Plan: Patient was admitted with confusion which resolved after 1 day hospital stay for IV antibiotics fluids. This problem is now resolved. (2) Acute UTI: Code(s): N39.0 - Urinary tract infection, site not specified Status: Acute Assessment and Plan: History of renal transplant 4 years ago following with [facility] admitted for UTI with findings sepsis. Urine culture grows Enterobacter that is sensitive to IV medication she has received hospitalized as well Bactrim that she will be discharged home on. Levaquin had better susceptibility but the patient has allergy of such. (3) Sepsis: Qualifiers: Sepsis acute organ dysfunction status: without acute organ dysfunction Sepsis type: sepsis due to unspecified organism Qualified Code(s): A41.9 - Sepsis, unspecified organism Code(s): A41.9 - Sepsis, unspecified organism Status: Acute Assessment and Plan: Resolved attributed to UTI. (4) Status post kidney transplant: Code(s): Z94.0 - Kidney transplant status Status: Acute Assessment and Plan: Patient to continue home anti-rejection schedule and follow up with transplant provider apartments on regular interval (5) Diabetes mellitus: Code(s): E11.9 - Type 2 diabetes mellitus without complications Status: Acute Assessment and Plan: Hemoglobin A1c 13.1 upon this admission. Patient is aware that her diabetes is not well controlled. Patient encouraged to take better care of her diabetes check glucose occasionally and notify her provider continues to run high. (6) History of heart artery stent: Code(s): Z95.5 - Presence of coronary angioplasty implant and graft Status: Acute Assessment and Plan: Patient on dual anti-platelet therapy which will be continued upon discharge. Plan Discharge patient on Bactrim to complete 7 day course total antibiotics. Order written for repeat renal function panel in 1 week. Patient educated on better diabetes control. DS: Summary Hospital Course Reason for hospitalization: Patient was admitted to the hospital for acute confusion found to urinary infection status post kidney transplant. Hospital Course: Renal ultrasound was unremarkable with normal findings no obstructive uropathy. Patient was treated with IV Rocephin which was later changed to IV cefepime upon identification of Enterobacter while awaiting susceptibilities. Susceptibility reports today and patient be discharged on oral Bactrim to complete a full 7 day course of antibiotic treatment. Of note, patient's glycemic control much better today and yesterday compared to the 1st couple days which also indicates infection is improving. Patient has remained afebrile while hospitalized and mental status improved after the 1st night. She is back to baseline and very anxious to be discharged home. Patient was seen in consultation by Nephrology who reports the patient is renal function is back to baseline and no further changes to plan need to be made. Time spent discussing smoking cessation with patient: 3 to 10 minutes Status at Discharge Cognitive/behavioral status at discharge: Patient is awake, alert, oriented and pleasant. Functional status at discharge: independent ambulation Time Spent with Patient Time attestation: Total time spent providing and/or coordinating discharge services: Time spent: Greater than 30 minutes Exam Narrative: General:? well-nourished, well-appearing 67-year-old female,? sitting up in bed, comfortable Neuro: awake, alert and oriented x4, speech clear, no focal n
--- NOTE | 2023-01-18 13:10 | PC.NURSE ---
Pt discharging home with antibiotics. Pt has reported no pain. Pt did not require any insulin this morning, but got insulin with lunch. Pt is back to baseline and states that she is ready to be off the alarm. Pt has been stable on her feet. Pt continues to get IV fluids. Will continue to monitor pt.
[2023-01-19 23:43] LABS: Tacrolimus Prograf 6.9 mcg/L
--- NOTE | 2023-01-22 13:09 | PC.NURSE ---
Blood cx are negative. Tacnlimus- 6.[address] Flores aware.
== END 2023-01-18 16:25 | disposition home or self-care (01) | DRG 871 ==
LOC: ANHED 01-16 03:04 → ANH3MEDSUR 01-17 06:43
PROVIDERS: Emergency Medicine; Nurse Practitioner Acute Care; Admitting Provider Internal Medicine; Emergency Provider Physician Assistant; PCP Internal Medicine Rheumatology; Visit Provider Nurse Practitioner
DX: A41.9 Sepsis, unspecified organism (principal); G93.41 Metabolic encephalopathy; N18.6 End stage renal disease; Z94.0 Kidney transplant status; I12.0 Hypertensive chronic kidney disease with stage 5 chronic kidney disease or end stage renal disease; N39.0 Urinary tract infection, site not specified; W19.XXXA Unspecified fall, initial encounter; B96.89 Other specified bacterial agents as the cause of diseases classified elsewhere; E11.65 Type 2 diabetes mellitus with hyperglycemia; E11.22 Type 2 diabetes mellitus with diabetic chronic kidney disease; I25.2 Old myocardial infarction; Z79.82 Long term (current) use of aspirin; Z95.5 Presence of coronary angioplasty implant and graft; Z87.891 Personal history of nicotine dependence; Z99.2 Dependence on renal dialysis; Z79.02 Long term (current) use of antithrombotics/antiplatelets; Z79.84 Long term (current) use of oral hypoglycemic drugs
CPT/HCPCS: 36415; 70450; 71045; 72125; 76775; 80048; 80053; 80197; 81001; 82010; 82948; 83036; 83605; 83735; 84100; 85025; 87040; 87077; 87086; 87186; 96361; 96365; 99285; A9270; J0692; J0696; J1815; J2405; J7030; J7040; J7512

== ENCOUNTER 2023-11-06 00:16 | Inpatient (IN) | payer MEDICARE, OTHER, SELFPAY ==
[2023-11-06] VITALS (10 sets, daily range): BP systolic 145–185; BP diastolic 64–88; PULSE 77–99; RESP 16–18; TEMP 36.1–36.7; O2SAT 96–100; BMI 27.6
--- NOTE | ~2023-11-06 | US_ITS ---
EXAMINATION: US abdomen limited DATE: 11/06/2023 13:56 INDICATION: Epigastric and right upper quadrant abdominal pain. TECHNIQUE: Multiple grayscale and Doppler ultrasound images of the abdomen were obtained. COMPARISON: MRCP 11/06/2023 FINDINGS: The visualized portions of the head and body of the pancreas are normal. The liver is durga l. There is normal flow in main portal vein. The gallbladder is distended and contains gallstones. Ga llbladder wall thickening is noted. There is no sonographic Blanc sign. The common duct is normal an d measures 5 mm. IMPRESSION: 1. Distended gallbladder with gallstones and gallbladder wall thickening, but no sonographic Blanc s ign. These findings are as suspicious for acute cholecystitis. Reviewed, dictated and finalized at location E. IMPRESSION: 1. Distended gallbladder with gallstones and gallbladder wall thickening, but n o sonographic Blanc sign. These findings are as suspicious for acute cholecyst itis.
--- NOTE | ~2023-11-06 | CT_ITS ---
EXAMINATION: CT abdomen pelvis w con DATE: 11/06/2023 03:38 INDICATION: Epigastric abdominal pain. TECHNIQUE: Computed tomography (CT) of the abdomen and pelvis was performed with 100 mL Omnipaque 350 intravenous contrast. Automated exposure control and iterative reconstruction technique were employe d. The dose-length product was 422.82 mGy-cm. COMPARISON: None. FINDINGS: The visualized portions of the lung bases demonstrate mild atelectasis. There is mild bronc hiectasis bilaterally. No pleural effusion. The heart size is normal. There are calcifications of the aortic valve. There are coronary artery calcifications. No pericardial effusion. There is ectasia of ascending aorta measuring 4.2 cm. The liver is normal. There are gallstones in the gallbladder, whic h is distended. Gallbladder wall thickening is noted. The common duct is mildly dilated to 9 mm. The spleen, pancreas, and adrenal glands are normal. There is severe atrophy of the kidneys. There are cy sts in the kidneys measuring up to 2.1 cm on the left. There is calcified atherosclerosis of the aort a and many of the other arteries. There is a transplant kidney in right iliac fossa with cortical thi nning. There is urothelial thickening and enhancement in the pelvis of the transplant kidney. There i s diverticulosis of the colon without evidence of diverticulitis. There are no dilated loops of bowel . The appendix is normal. There are no pathologically enlarged lymph nodes. There is no free intraper itoneal fluid. There is a chronic compression fracture of T10. There are a few benign bone islands in the spine. IMPRESSION: 1. Acute cholecystitis. 2. Mildly dilated common duct. 3. Pyelitis involving the transplant kidney. Reviewed, dictated and finalized at location E.
--- NOTE | ~2023-11-06 | MR_ITS ---
EXAMINATION: MR MRCP wo/w con/w 3D wo ind DATE: 11/06/2023 12:01 INDICATION: Epigastric abdominal pain. TECHNIQUE: Magnetic resonance imaging (MRI) of the abdomen was performed without and with 12 mL Multi Jose intravenous contrast. Sequences included coronal T2-weighted FS FSE, coronal T2-weighted FSE, a xial T1-weighted LAVA, coronal FS FIESTA, axial dual-echo T1-weighted SPGR, coronal lava-FLEX, sagitt al T2-weighted FSE, axial T2-weighted FSE, and axial DWI. Thick-slab T2-weighted FSE images were obta ined for magnetic resonance cholangiopancreatography (MRCP). Maximum intensity projection 3-D reconst ructions of the volumetric data were created by the technologist. Postcontrast sequences included cor onal LAVA-flex and time course of axial T1-weighted LAVA. COMPARISON: CT abdomen and pelvis 11/06/2023 FINDINGS: ABDOMEN MRI: The liver is normal. There are gallstones in the gallbladder, which is dilated with wall thickening and surrounding fat stranding. There are old blood products at the periphery of the splee n. The pancreas and adrenal glands are normal. There is severe atrophy of the kidneys. There are cyst s and hemorrhagic cysts in the kidneys measuring up to 2.0 cm on the right. There is a transplant kid holden in the right iliac fossa with cortical thinning. There are no dilated loops of bowel. There are n o pathologically enlarged lymph nodes. There is no free intraperitoneal fluid. ABDOMEN MRCP: The common duct is mildly dilated to 9 mm. No choledocholithiasis. IMPRESSION: 1. Acute cholecystitis. 2. Mildly dilated common duct. No choledocholithiasis. Reviewed, dictated and finalized at location E.
[2023-11-06 02:29] LABS: Basophils Absolute Auto 0.1 K/mm3 (0.0-0.1); Basophils Percent Auto 0.4 % (0.2-1.2); Eosinophils Absolute Auto 0.5 K/mm3 (0-0.3); Eosinophils Percent Auto 3.3 % (0-4.4); Hematocrit 46.2 % (37.0-47.0); Hemoglobin 15.2 g/dL (12.0-15.0); Immature Granulocyte Absolute 0.05 K/mm3 (0.00-0.031); Immature Granulocyte Percent A 0.3 % (0-0.5); Lymphocytes Absolute Auto 2.31 K/mm3 (0.9-3.2); Lymphocytes Percent Auto 14.2 % (18.3-44.2); Mean Corpuscular HGB Conc 32.9 g/dl (32-36); Mean Corpuscular Hemoglobin 31.5 pg (26-34); Mean Corpuscular Volume 95.7 fl (80-100); Mean Platelet Volume 9.5 fl (7.4-10.4); Monocytes Absolute Auto 1.1 K/mm3 (0.1-0.6); Monocytes Percent Auto 6.6 % (2.6-8.5); Neutrophils Absolute Auto 12.2 K/mm3 (1.3-6.7); Neutrophils Percent Auto 75.2 % (45.5-73.1); Platelet Count Result 325 k/mm3 (150-375); Red Blood Count 4.83 M/mm3 (4.2-5.4); Red Cell Distribution Width 12.7 % (11.5-14.5); White Blood Count 16.3 K/mm3 (4.5-10.0)
[2023-11-06 02:33] LABS: Appearance Urine Cloudy (Clear); Bacteria Urine 4+ /hpf; Bilirubin Urine Negative (Negative); Blood Urine 3+ (Negative); Color Urine Yellow (Yellow); Glucose Urine UA 3+ mg/dL (Negative); Ketones Urine 1+ mg/dL (Negative); Leukocyte Esterase Ur 2+ LEU/UL (Negative); Nitrate Urine Negative (Negative); Non Pathogenic Casts 0-2; Protein Urine 1+ mg/dL (Negative); RBC Urine 51-100 /hpf (0-2); Specific Grav Ur 1.023 (1.001-1.035); Squamous Epithelial Cell Urine None Seen /hpf (Few); WBC Urine >100 /hpf (0-3)
[2023-11-06] MEDS: SODIUM CHLORIDE 0.9% IV 1,000 ML 999 ML IV CONT ×2 (02:35→14:05)
[2023-11-06] MEDS: ONDANSETRON INJ 4 MG/2 ML VIAL IV PUSH ×2 (02:35→06:16)
[2023-11-06] MEDS: MORPHINE SULFATE (*CRX) 4 MG/ML INJ IV PUSH ×2 (02:35→06:16)
[2023-11-06 02:48] LABS: Add Urine Microscopic? YES
[2023-11-06 03:04] LABS: Alanine Aminotransferase 58 U/L (6-35); Albumin Level 4.7 g/dL (3.5-5.1); Alkaline Phosphatase 74 U/L (38-126); Anion Gap 12 mmol/L (4-12); Aspartate Amino Transferase 44 U/L (14-36); Blood Urea Nitrogen 26 mg/dL (7-17); Calcium 8.8 mg/dL (8.4-10.2); Carbon Dioxide 18 mmol/L (22-30); Chloride 107 mmol/L (98-107); Estimated CRCL calculation 32 ml/min; Estimated Glomerular Filt Rate 41; Glucose 275 mg/dL (65-110); Lipase 218 U/L (23-300); Potassium 4.4 mmol/L (3.4-5.0); Sodium 137 mmol/L (137-145)
--- NOTE | 2023-11-06 03:45 | ED.GENADULT ---
HPI - General Adult General Chief complaint: Abdominal Pain Stated complaint: gallbladder - vomiting Time Seen by Provider: 11/06/23 02:23 History of Present Illness HPI narrative: Patient is a 68-year-old female who presents emergency department with chief complaint of abdominal pain. Patient reports he has prior history of gallstones and reports that started having pain in the epigastric area reports she half of a cheeseburger and also had a slice of pizza this evening the patient reports the pain is sharp ports not improved by anything. Related Data Home Medications Medication Instructions Recorded Confirmed aspirin 325 mg tablet,delayed 81 mg PO DAILY 01/20/20 05/03/23 release cholecalciferol (vitamin D3) 50 50 mcg PO DAILY 01/20/20 05/03/23 mcg (2,000 unit) capsule clopidogrel 75 mg tablet 75 mg PO DAILY 01/20/20 01/16/23 duloxetine 60 mg capsule,delayed 60 mg PO DAILY 01/20/20 05/03/23 release (Cymbalta) famotidine 20 mg tablet 20 mg PO DAILY 01/20/20 05/03/23 metoprolol tartrate 25 mg tablet 12.5 mg PO BID 01/20/20 05/03/23 prednisone 5 mg tablet 5 mg PO DAILY 01/20/20 01/16/23 rosuvastatin 40 mg tablet 40 mg PO HS 01/20/20 05/03/23 tacrolimus 1 mg tablet,extended 3 mg PO DAILY 01/20/20 05/03/23 release 24 hr (Envarsus XR) insulin aspart U-100 100 unit/mL 6 unit subcut TID 01/16/23 05/03/23 (3 mL) subcutaneous pen (Novolog FlexPen U-100 Insulin aspart) insulin glargine 100 unit/mL 18 unit subcut HS 01/16/23 05/03/23 subcutaneous solution (Lantus U-100 Insulin) acetaminophen 500 mg tablet 1,000 mg PO QID PRN Pain, Mild 01/17/23 01/17/23 alprazolam 1 mg tablet 1 mg PO TID PRN Anxiety 01/17/23 05/03/23 tramadol 50 mg tablet 50 mg PO Q6H PRN Anxiety 01/17/23 05/03/23 Allergies Allergy/AdvReac Type Severity Reaction Status Date / Time levofloxacin Allergy Unknown Swelling Verified 05/03/23 09:00 of Lip/Tongue/Throat Review of Systems Review of Systems: A 10 system review of systems was completed on the patient and is negative except for what is stated in the HPI. Nursing and ancillary documentation was reviewed. [facility] Past Medical History Medical History Antiplatelet or antithrombotic long-term use Anxiety disorder CKD (chronic kidney disease) requiring chronic dialysis Diabetes mellitus Hemodialysis access site with mature fistula Lupus Surgical History Surgical History H/O lithotripsy H/O sinus surgery History of delivery History of heart artery stent Kidney transplant recipient Family History Family History Other Breast cancer Family history of malignant neoplasm Heart disease Hypertension Ovary cancer Social History Social History Smoking status: Former smoker Smoking end date: 07/16/15 Alcohol intake: never Substance use: never Lack of Transportation: No Lack of Food: Never True Current Housing: I Have Housing Concerned About Future Housing: No Difficulty Paying Gas/Electric Bills: No Difficulty Paying for Meds: No Currently Unemployed: No Education: High School Diploma/GED Difficulty w/ Childcare or Family Care: No Living arrangements: alone Occupation/Education: retired Gender identity (if verbalized by the patient): Female Sexual Orientation (if Verbalized by the Patient): Straight or Heterosexual Spiritual care concerns: No Exam Narrative: GENERAL: Well-appearing, well-nourished, and in no acute distress. HEAD: Normocephalic, atraumatic. EYES: PERRLA and EOMI. ENT: Nares clear, no rhinorrhea or epistaxis. Mucous membranes moist. NECK: Supple. CHEST: Clear to auscultation. No respiratory distress. HEART: Regular rate and rhythm. No murmur heard.
[2023-11-06] MEDS: SODIUM CHLORIDE 0.9% IV 1,000 ML 125 ML IV CONT ×3 (06:06→20:25)
--- NOTE | 2023-11-06 07:59 | PM.IMHP ---
H&P: HPI History of Present Illness Date/Time: 11/06/23 07:59 Chief Complaint: abdominal pain Narrative: This is a 68 year old female who presented to the ED with complaints of 10/10 abdominal pain to her RUQ. 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 Patient presents to the ER yesterday with 1 day of tenderness 10 abdominal pain located to her right lower and right upper quadrant. She describes the pain as stabbing with associated vomiting. She denies fever chills. No recent ill contact. She also reports headache and pink urine without dysuria. Currently when I see her she is not having abdominal pain as she has received IV morphine which is helping. She denies nausea at this time. I called [place] [facility] team and spoke with Dr. Howard and discussed patient's case with concerns of pyelitis and acute cholecystitis. Dr. Howard states the patient does not require transfer for the pyelitis and it is okay for her to proceed with lap choley should surgery deem it warranted. She recommended meropenem only for antibiotic coverage until cultures result. Continue Envarsus 5 mg daily as well as prednisone 5 mg daily for transplanted kidney. In the ED labs were significant for a leukocytosis of 16.3 with left shift, hemoglobin 15.2, Cr 1.30, BUN 26, glucose 275, AST 44, and ALT 58. Her UA was positive for a UTI for which urine cultures were sent and she received [address] of her abdomen and pelvis shows acute cholecystitis with a mildly dilated common bile duct and pyelitis involving the transplant kidney. She underwent HIDA scan which shows acute cholecystitis but no choledocholithiasis. She is being admitted in the setting for surgical consult for possible lap choly and IV antibiotics for pyelonephritis. Review of Systems Review of Systems: All systems reviewed & are unremarkable except as noted in HPI and below PMFSH Past Medical History Medical History Antiplatelet or antithrombotic long-term use Anxiety disorder CKD (chronic kidney disease) requiring chronic dialysis Diabetes mellitus Hemodialysis access site with mature fistula Lupus Myocardial infarction Surgical History Surgical History H/O lithotripsy H/O sinus surgery History of delivery History of heart artery stent Kidney transplant recipient Family History Family History Other Breast cancer Family history of malignant neoplasm Heart disease Hypertension Ovary cancer Social History Social History Smoking status: Former smoker Smoking end date: 07/16/15 Alcohol intake: never Substance use: never Do You Feel Safe in your Home?: Yes Lack of Transportation: No Lack of Food: Never True Current Housing: I Have Housing Concerned About Future Housing: No Difficulty Paying Gas/Electric Bills: No Difficulty Paying for Meds: No Currently Unemployed: No Education: High School Diploma/GED Difficulty w/ Childcare or Family Care: No Living arrangements: alone Occupation/Education: retired Gender identity (if verbalized by the patient): Female Sexual Orientation (if Verbalized by the Patient): Straight or Heterosexual Spiritual care concerns: No Meds Home Medications and Allergies Home Medications Medication Instructions Recorded Confirmed Type aspirin 325 mg tablet,delayed 81 mg PO DAILY 01/20/20 11/06/23 History release cholecalciferol (vitamin D3) 50 50,000 unit PO DAILY 01/20/20 11/06/23 History mcg (2,000 unit) capsule clopidogrel 75 mg tablet 75 mg PO DAILY 01/20/20 11/06/23 History duloxetine 60 mg ca
[2023-11-06] MEDS: MEROPENEM 1 GM/NS 100 ML 1 GM/100 ML BAG IVPB ×3 (09:30→21:29)
[2023-11-06] MEDS: VANCOMYCIN 1,250 MG/NS 250 ML 1,250 MG/250 ML BAG 166.67 MG IVPB (10:30)
[2023-11-06] MEDS: DULoxetine HCL 30 MG CAPSULE.DR 90 MG PO (10:33)
[2023-11-06] MEDS: FAMOTIDINE 20 MG TABLET PO (10:33)
[2023-11-06] MEDS: ASPIRIN 81 MG ENTERIC TABLET PO (10:33)
[2023-11-06] MEDS: predniSONE 5 MG TABLET PO (10:34)
[2023-11-06] MEDS: METOPROLOL TARTRATE 12.5 MG TABLET PO ×2 (10:36→20:21)
[2023-11-06 12:04] LABS: MRSA (PCR) NOT DETECTED (NOT DETECTE)
[2023-11-06 12:26] LABS: Glucose Point of Care 158 mg/dl (65-105)
[2023-11-06 13:16] LABS: Lactic Acid Reflex 2.5 mmol/L (0.7-2.0)
[2023-11-06 13:19] LABS: CRP 0.9 mg/dL (<1.0)
[2023-11-06 13:34] LABS: Procalcitonin 0.2 ng/mL
--- NOTE | 2023-11-06 14:33 | PM.CNGS ---
Assessment and Plan Assessment and plan (1) Acute cholecystitis: Code(s): K81.0 - Acute cholecystitis Status: Acute Assessment and Plan: CT scan abdomen/pelvis reviewed and shows evidence of acute cholecystitis with cholelithiasis and mildly dilated common bile duct. AST and ALT mildly elevated, but total bilirubin normal. MRCP showed acute cholecystitis, no choledocholithiasis. Abdominal US also shows evidence of cholecystitis. Her abdominal pain has improved. She still has RUQ abdominal tenderness. Discussed both nonoperative and surgical treatment options with the patient. This is her second episode of abdominal pain that has brought her into the ER related to her gallbladder. We discussed the options of proceeding with a laparoscopic cholecystectomy by Dr. Lewis under general anesthesia. Description of the procedure, risks, benefits, expected outcomes, and expected recovery were discussed with the patient in detail. We discussed the risks of bile leak and bile duct injury, liver/bowel injury, bleeding, and infection. Also discussed the possibility of having to convert to an open procedure if necessary. She does have clopidogrel listed in her home medications, but she has not been taking this for almost two months per the patient. Discussed the case with Dr. Lewis. The patient wishes to proceed with surgery. We will allow a low fat diet today and try adding her onto the surgery schedule for tomorrow. (2) Pyelitis: Code(s): N12 - Tubulo-interstitial nephritis, not specified as acute or chronic Status: Acute Assessment and Plan: Continue IV antibiotics. (3) Renal transplant recipient: Code(s): Z94.0 - Kidney transplant status Status: Acute Assessment and Plan: Patient currently on tacrolimus and prednisone. Spoke with Hospitalist who also spoke with [facility] regarding her renal transplant. They are okay with her remaining at this facility on IV antibiotics for the pyelitis. (4) Common bile duct dilation: Code(s): K83.8 - Other specified diseases of biliary tract Status: Acute Assessment and Plan: MRCP negative for choledocholithiasis. Total bilirubin normal. (5) Diabetes mellitus: Code(s): E11.9 - Type 2 diabetes mellitus without complications Status: Acute (6) Lupus: Code(s): M32.9 - Systemic lupus erythematosus, unspecified Status: Chronic (7) Immunosuppression due to drug therapy: Code(s): D84.821 - Immunodeficiency due to drugs; Z79.899 - Other skilled nursing (current) drug therapy Status: Acute Plan I have discussed the patient's case and plan of care with Dr. Lewis. Thank you for allowing us to see the patient in consultation and we will continue to follow along with you. History of Present Illness Consult details Consult date: 11/06/23 Reason for consult: other (Acute cholecystitis) Requesting physician: Alfonso Collins MD Narrative: This is a 68-year-old woman with a history of ESRD secondary to Lupus for which she underwent a right renal transplant 4 years ago at [place], diabetes type 2, hypertension, [place] in 2018 with stents, and hyperlipidemia. We were asked to see her in surgical consultation for acute cholecystitis. She came into the ER overnight for RUQ abdominal pain. She reports eating pizza for dinner last night and then around 9pm she developed epigastric and RUQ abdominal pain. Her pain quickly progressed and she developed nausea and vomiting. She reports having a similar episode of pain like this last March that brought her into [facility] for evaluation. She was told it was related to her gallstones and they recommended surgery, but could not add her onto the schedule for a few days and she opted to go home and fell out of follow-up. She has had no issues since then until last night. Labs in the ER showed a WBC count of 16,300 and mild elevated in AST and ALT. CT scan of the abdomen and pelvis showed pyelit
[2023-11-06 16:01] LABS: Reflex Lactic Acid Yes or No Add Lactic
[2023-11-06 17:14] LABS: Glucose Point of Care 252 mg/dl (65-105)
--- NOTE | 2023-11-06 18:25 | PC.NURSE ---
Pt only had one dose of meropenem given 11/06/23 AM. Unable to undo first infusion. Vancomycin given, followed by NS bolus. Pt to MRCP and ultrasound this AM. Pt denies pain; states only mild discomfort related to last night. Pt allowed to eat, seen by surgery to discuss lap katerin. Pt tolerated dinner well, still no complaints of pain. Pt agreeable to plan of care.
[2023-11-06 19:28] LABS: Hemoglobin A1C 8.1 % (<5.7)
[2023-11-06] MEDS: ACETAMINOPHEN 325 MG TABLET PO (20:19)
[2023-11-06] MEDS: ROSUVASTATIN 10 MG TABLET 40 MG PO (20:20)
[2023-11-06] MEDS: INSULIN GLARGINE (*BKC) 100 UNITS/ML 17 UNITS SUB-Q (20:24)
[2023-11-06 20:28] LABS: Glucose Point of Care 220 mg/dl (65-105)
[2023-11-07] VITALS (13 sets, daily range): BP systolic 139–181; BP diastolic 52–86; PULSE 70–77; RESP 16–25; TEMP 36.3–37.2; O2SAT 93–99
[2023-11-07] MEDS: SODIUM CHLORIDE 0.9% IV 1,000 ML 125 ML IV CONT (04:45)
[2023-11-07 06:27] LABS: Glucose Point of Care 107 mg/dl (65-105)
[2023-11-07 06:29] LABS: Basophils Absolute Auto 0.1 K/mm3 (0.0-0.1); Basophils Percent Auto 0.4 % (0.2-1.2); Eosinophils Absolute Auto 1.5 K/mm3 (0-0.3); Eosinophils Percent Auto 13.5 % (0-4.4); Hematocrit 39.7 % (37.0-47.0); Hemoglobin 12.9 g/dL (12.0-15.0); Immature Granulocyte Absolute 0.03 K/mm3 (0.00-0.031); Immature Granulocyte Percent A 0.3 % (0-0.5); Lymphocytes Percent Auto 26.8 % (18.3-44.2); Mean Corpuscular HGB Conc 32.5 g/dl (32-36); Mean Corpuscular Hemoglobin 32.1 pg (26-34); Mean Corpuscular Volume 98.8 fl (80-100); Mean Platelet Volume 9.4 fl (7.4-10.4); Monocytes Absolute Auto 1.4 K/mm3 (0.1-0.6); Monocytes Percent Auto 12.3 % (2.6-8.5); Neutrophils Absolute Auto 5.2 K/mm3 (1.3-6.7); Neutrophils Percent Auto 46.7 % (45.5-73.1); Platelet Count Result 250 k/mm3 (150-375); Red Blood Count 4.02 M/mm3 (4.2-5.4); Red Cell Distribution Width 13.4 % (11.5-14.5); White Blood Count 11.2 K/mm3 (4.5-10.0)
[2023-11-07 06:37] LABS: Alanine Aminotransferase 41 U/L (6-35); Albumin Level 3.6 g/dL (3.5-5.1); Alkaline Phosphatase 53 U/L (38-126); Anion Gap 5 mmol/L (4-12); Aspartate Amino Transferase 32 U/L (14-36); Bilirubin,Total 0.7 mg/dL (0.2-1.3); Blood Urea Nitrogen 15 mg/dL (7-17); Calcium 7.4 mg/dL (8.4-10.2); Carbon Dioxide 19 mmol/L (22-30); Chloride 114 mmol/L (98-107); Estimated CRCL calculation 37 ml/min; Estimated Glomerular Filt Rate 50; Glucose 103 mg/dL (65-110); Potassium 3.9 mmol/L (3.4-5.0); Sodium 138 mmol/L (137-145)
[2023-11-07] MEDS: MEROPENEM 1 GM/NS 100 ML 1 GM/100 ML BAG IVPB ×2 (09:35→20:55)
[2023-11-07] MEDS: DULoxetine HCL 30 MG CAPSULE.DR 90 MG PO (09:37)
[2023-11-07] MEDS: FAMOTIDINE 20 MG TABLET PO (09:37)
[2023-11-07] MEDS: predniSONE 5 MG TABLET PO (09:37)
[2023-11-07] MEDS: METOPROLOL TARTRATE 12.5 MG TABLET PO ×2 (09:37→20:55)
--- NOTE | 2023-11-07 10:04 | PHAR ---
* USE FROM HOME * Tacrolimus [Envarsus Xr] 1 mg tablet extended release 24 hr TAKE 5 TABLETS BY MOUTH DAILY POST HOLE DIGGER BEFORE BREAKFAST
[2023-11-07 11:38] LABS: Glucose Point of Care 145 mg/dl (65-105)
[2023-11-07] MEDS: LACTATED RINGERS 1,000 ML 30 ML IV CONT ×2 (13:10→15:52)
--- NOTE | 2023-11-07 13:56 | WPDHPUPDATE1 ---
History and Physical Update Update Date/Time: 11/07/23 13:56 History and Physical has been reviewed, including an updated exam of the patient. There are NO changes in the patient's condition. Risks, benefits, and alternatives have been discussed and questions answered. Patient agrees to proceed with procedure.
--- NOTE | 2023-11-07 14:23 | WPDANESEPPF ---
Anes - Initial Pre Proc Eval Procedure: Operation Date: 11/07/23 14:30 Proposed Procedures p Laparoscopic Cholecystectomy, Possible Open - Gerardo Lewis DO Date/Time: 11/07/23 14:23 Surgeon: Ingrid Foster MD Pre Op Diagnosis: UTI,Abdominal Pain,Dilated Common Bile Duct Patient Data Age: 68 Gender: F Height: 1.52 m Weight: 64.3 kg Last Vital Signs Temp 99 F 11/07/23 13:56 Pulse 77 11/07/23 13:56 Resp 16 11/07/23 13:56 BP 147/63 H 11/07/23 13:56 Pulse Ox 99 11/07/23 13:56 O2 Del Method Room Air 11/06/23 08:07 Allergies Allergy/AdvReac Type Severity Reaction Status Date / Time levofloxacin Allergy Unknown Swelling Verified 05/03/23 09:00 of Lip/Tongue/Throat Home Medications Medication Instructions Recorded Confirmed Type aspirin 325 mg tablet,delayed 81 mg PO DAILY 01/20/20 11/06/23 History release cholecalciferol (vitamin D3) 50 50,000 unit PO DAILY 01/20/20 11/06/23 History mcg (2,000 unit) capsule clopidogrel 75 mg tablet 75 mg PO DAILY 01/20/20 11/06/23 History duloxetine 60 mg capsule,delayed 90 mg PO DAILY 01/20/20 11/06/23 History release (Cymbalta) famotidine 20 mg tablet 20 mg PO DAILY 01/20/20 11/06/23 History metoprolol tartrate 25 mg tablet 12.5 mg PO Q12H 01/20/20 11/06/23 History prednisone 5 mg tablet 5 mg PO DAILY 01/20/20 11/06/23 History rosuvastatin 40 mg tablet 40 mg PO HS 01/20/20 11/06/23 History tacrolimus 1 mg tablet,extended 5 mg PO DAILY 01/20/20 11/06/23 History release 24 hr (Envarsus XR) insulin aspart U-100 100 unit/mL 6 unit subcut TID 01/16/23 11/06/23 History (3 mL) subcutaneous pen (Novolog FlexPen U-100 Insulin aspart) insulin glargine 100 unit/mL 22 unit subcut HS 01/16/23 11/06/23 History subcutaneous solution (Lantus U-100 Insulin) acetaminophen 500 mg tablet 1,000 mg PO QID PRN Pain, Mild 01/17/23 11/06/23 History alprazolam 1 mg tablet 1 mg PO TID PRN Anxiety 01/17/23 11/06/23 History tramadol 50 mg tablet 50 mg PO Q6H PRN Anxiety 01/17/23 11/06/23 History denosumab 60 mg/mL subcutaneous 60 mg subcut [id number] 11/06/23 11/06/23 History syringe (Prolia) dulaglutide 3 mg/0.5 mL 3 mg subcut WEEKLY 11/06/23 11/06/23 History subcutaneous pen injector (Trulicity) fluconazole 200 mg tablet 200 mg PO Q72H PRN infection 11/06/23 11/06/23 History (Diflucan) Laboratory Tests 11/06/23 11/06/23 11/06/23 02:20 17:10 20:11 WBC RBC Hgb Hct MCV MCH MCHC RDW Plt Count MPV Immature Gran % (Auto) Neut % (Auto) Lymph % (Auto) Gentry % (Auto) Eos % (Auto) Baso % (Auto) Lymph # (Auto) Gentry # (Auto) Eos # (Auto) Baso # (Auto) Abs Immat Gran (auto) Absolute Neuts (auto) Absolute Nucleated RBC Nucleated RBC % Sodium Potassium Chloride Carbon Dioxide Anion Gap BUN Creatinine Estim Creat Clear Calc Estimated GFR Glucose POC Capillary Glucose 252 H mg/dl 220 H mg/dl (65-105) (65-105) Hemoglobin A1c 8.1 H % (<5.7) Lactic Acid 2.0 mmol/L (0.7-2.0) Calcium Total Bilirubin AST ALT Alkaline Phosphatase Total Protein Albumin Tacrolimus 11/07/23 11/07/23 11/07/23 05:53 05:58 11:36 WBC 11.2 H K/mm3 (4.5-10.0) RBC 4.02 L M/mm3 (4.2-5.4) Hgb 12.9 g/dL (12.0-15.0) Hct 39.7 % (37.0-47.0) MCV 98.8 fl (80-100) MCH 32.1 pg (26-34) MCHC 32.5 g/dl (32-36) RDW 13.4 %
--- NOTE | 2023-11-07 15:51 | W.PM.PROC2 ---
Procedure Note - Detailed Date of Procedure 11/07/23 Pre-op Diagnosis Acute calculous cholecystitis Post-op Diagnosis Same Procedure Performed Laparoscopic Cholecystectomy Surgeon Gerardo Lewis, DO Anesthesia General and Local (0.5% bupivacaine) Indications This is a 68-year-old woman who presented to the emergency department right upper quadrant abdominal pain that started 2 days prior. Imaging in the emergency department showed evidence of acute calculous cholecystitis. She was admitted for further treatment. Decision was made to proceed with laparoscopic cholecystectomy, possible open. Findings Laparoscopic cholecystectomy was performed. The patient's gallbladder appeared acutely inflamed with hyperemia, edema, and wall thickening. There is very thick bile within the gallbladder and some stones fragments. The cystic duct appeared normal in size. The gallbladder was removed and sent to the lab for pathology. There was a branch of the cystic artery that was bleeding along the right lateral gallbladder fossa. This was controlled with the clip roasterman but then to help with hemostasis on the general oozing from the gallbladder fossa I chose to spray Surgiflo over this region. Hemostasis then appeared adequate after this. Description of Procedure Procedure as well as risks, benefits, and alternatives were discussed with patient. Written consent was obtained and placed in chart prior to procedure. The patient was brought back to surgical suite. Patient was placed in supine position on operating table. Time-out was done to confirm patient and procedure. Patient was then intubated by the anesthesia department. Abdomen was prepped and draped in sterile fashion using chlorhexidine prep. 0.5% bupivacaine with epinephrine was infiltrated at each site of incision. A 5 millimeter incision was made near the umbilicus, and a 5 millimeter Optiview trocar was advanced through the abdominal layers under direct visualization. Once inside the abdominal cavity, carbon dioxide was insufflated to create a pneumoperitoneum. The camera was inserted and the abdomen was inspected. No immediate abnormalities were identified. The patient was placed in reverse Trendelenburg position and rotated slightly to the left. An 11 millimeter incision was made in the subxiphoid region, and an 11 millimeter trocar was inserted under direct visualization. Two 5 millimeter incisions were made in the right upper quadrant, and two 5 millimeter trocars were inserted under direct visualization. The gallbladder was identified and grasped at the fundus and retracted superiorly. It was then grasped at the infundibulum retracted laterally. Careful dissection around the neck of the gallbladder was performed using blunt dissection with a [place] grasper and hook electrocautery. The cystic duct was identified, and a window was created behind it. The cystic artery was also identified and a window was created behind it. The critical view of safety was identified, visualizing the cystic duct running directly into the neck of the gallbladder, and the cystic artery running directly into the wall of the gallbladder. A 5 millimeter clip roasterman was then used to place 2 clips proximally and 1 clip distally on both the cystic duct and cystic artery. They were then both transected using endoscopic scissors. Once safely away from the elaina hepatitis, the gallbladder was dissected free from the liver bed using hook electrocautery. Hemostasis was achieved along the way. The gallbladder was removed completely and then removed through the subxiphoid port. The liver bed was then inspected. Hemostasis appeared adequate, and our clips appeared secure. The area was gently irrigated with sterile saline. No other abnormalities were seen. The patient was flattened out in bed, and 1 final inspection was made around the abdominal cavity. The subxiphoid port was removed, and a Andrew Luz cone was used to
--- NOTE | 2023-11-07 16:24 | P.PNIM_ITS ---
Progress Note: A&P Assessment and Plan (1) Pyelitis: Code(s): N12 - Tubulo-interstitial nephritis, not specified as acute or chronic Status: Acute Assessment and Plan: CT imaging concerning for pyelitis of transplanted kidney * leukocytosis of 16.3 with left shift, afebrile * Cr 1.3, BUN 26 * lactic elevated at 2.5 * blood culture pending * UC showing E.coli * continue meropenem * IVF NS at 125 ml per hr * Case discussed with Dr Howard at [facility] transplant (2) Acute cholecystitis: Code(s): K81.0 - Acute cholecystitis Status: Acute Assessment and Plan: With RUQ pain, CT abdomen and pelvis shows acute cholecystitis * RUQ ultrasound and HIDA scan ordered overnight * general surgery performed lap katerin today * on broad spectrum antibiotics * blood cultures pending * Tylenol PRN for mild pain or fever * morphine 2-4 mg q 4 hours for pain (3) Acute UTI: Code(s): N39.0 - Urinary tract infection, site not specified Status: Acute Assessment and Plan: UA positive for UTI * meropenem given concerns for pyelitis in renal txp * urine culture showing E.coli (4) Diabetes mellitus: Code(s): E11.9 - Type 2 diabetes mellitus without complications Status: Chronic Assessment and Plan: Last A1C from 01/2023 was 13%. On Lantus 22 units, Novolog 6 units TID with meals, and Trulicity. * a1c 8.1 * Accu checks Q 6 hours while NPO * Low dose NPO SSI insulin * Decreased home Lantus by 20%. Now receiving 17 units nightly. (5) Status post kidney transplant: Code(s): Z94.0 - Kidney transplant status Status: Acute Assessment and Plan: S/P renal transplant at [facility] * continue Envarsus 5 mg XR daily * check Prograf level * continue prednisone 5 mg daily * discussed with transplant pharmacy cashier Subjective Date/time seen: 11/07/23 16:24 Interval history: Patient is doing well this morning, in no distress. Denies pain this morning. She had a lap katerin this afternoon, general surgery is following. Will continue AB therapy and await culture results. Review of Systems Review of Systems: All systems reviewed & are unremarkable except as noted in HPI and below Exam Narrative: General: well appearing, appears stated age. HEENT: normocephalic, atraumatic. Mucous membranes moist. EOMI, PERRLA Respiratory: lungs clear to auscultation bilaterally Cardiovascular: RRR, normal S1-S2 upon auscultation. Abdomen: Soft, nondistended and nontender. Bowel sounds present to all four quadrants. Extremities: No cyanosis, clubbing, or edema present. Pulses are palpable 2/2. Neuro: Alert and orientated x 4. Cranial nerves 2-12 intact without focal deficit. Skin: Warm, dry, and intact, without rash, erythema, or lesion. Psych: pleasant, cooperative, normal speech, normal affect, no hallucinations, no dysarthria Objective Data Vital Signs Vital Signs: Vital Signs - 24 hr 11/06/23 20:00 11/07/23 06:00 11/07/23 09:37 Temperature 97.4 F L 97.4 F L Pulse Rate 79 70 73 Respiratory Rate 18 16 Blood Pressure 153/64 H 143/58 H Pulse Oximetry 96 99 Oxygen Delivery Oxygen Flow Rate 11/07/23 13:56 11/07/23 15:52 11/07/23 16:05 Temperature 99 F 97.5 F L Pulse Rate 77 74 74 Respiratory Rate 16 25 H 23 H
--- NOTE | 2023-11-07 16:24 | PM.IMPN ---
Progress Note: A&P Assessment and Plan (1) Pyelitis: Code(s): N12 - Tubulo-interstitial nephritis, not specified as acute or chronic Status: Acute Assessment and Plan: CT imaging concerning for pyelitis of transplanted kidney leukocytosis of 16.3 with left shift, afebrile Cr 1.3, BUN 26 lactic elevated at 2.5 blood culture pending UC showing E.coli continue meropenem IVF NS at 125 ml per hr Case discussed with Dr Howard at [facility] transplant (2) Acute cholecystitis: Code(s): K81.0 - Acute cholecystitis Status: Acute Assessment and Plan: With RUQ pain, CT abdomen and pelvis shows acute cholecystitis RUQ ultrasound and HIDA scan ordered overnight general surgery performed lap katerin today on broad spectrum antibiotics blood cultures pending Tylenol PRN for mild pain or fever morphine 2-4 mg q 4 hours for pain (3) Acute UTI: Code(s): N39.0 - Urinary tract infection, site not specified Status: Acute Assessment and Plan: UA positive for UTI meropenem given concerns for pyelitis in renal txp urine culture showing E.coli (4) Diabetes mellitus: Code(s): E11.9 - Type 2 diabetes mellitus without complications Status: Chronic Assessment and Plan: Last A1C from 01/2023 was 13%. On Lantus 22 units, Novolog 6 units TID with meals, and Trulicity. a1c 8.1 Accu checks Q 6 hours while NPO Low dose NPO SSI insulin Decreased home Lantus by 20%. Now receiving 17 units nightly. (5) Status post kidney transplant: Code(s): Z94.0 - Kidney transplant status Status: Acute Assessment and Plan: S/P renal transplant at [facility] continue Envarsus 5 mg XR daily check Prograf level continue prednisone 5 mg daily discussed with transplant stock unloader Subjective Date/time seen: 11/07/23 16:24 Interval history: Patient is doing well this morning, in no distress. Denies pain this morning. She had a lap katerin this afternoon, general surgery is following. Will continue AB therapy and await culture results. Review of Systems Review of Systems: All systems reviewed & are unremarkable except as noted in HPI and below Exam Narrative: General: well appearing, appears stated age. HEENT: normocephalic, atraumatic. Mucous membranes moist. EOMI, PERRLA Respiratory: lungs clear to auscultation bilaterally Cardiovascular: RRR, normal S1-S2 upon auscultation. Abdomen: Soft, nondistended and nontender. Bowel sounds present to all four quadrants. Extremities: No cyanosis, clubbing, or edema present. Pulses are palpable 2/2. Neuro: Alert and orientated x 4. Cranial nerves 2-12 intact without focal deficit. Skin: Warm, dry, and intact, without rash, erythema, or lesion. Psych: pleasant, cooperative, normal speech, normal affect, no hallucinations, no dysarthria Objective Data Vital Signs Vital Signs: Vital Signs - 24 hr 11/06/23 20:00 11/07/23 06:00 11/07/23 09:37 Temperature 97.4 F L 97.4 F L Pulse Rate 79 70 73 Respiratory Rate 18 16 Blood Pressure 153/64 H 143/58 H Pulse Oximetry 96 99 Oxygen Delivery Oxygen Flow Rate 11/07/23 13:56 11/07/23 15:52 11/07/23 16:05 Temperature 99 F 97.5 F L Pulse Rate 77 74 74 Respiratory Rate 16 25 H 23 H Blood Pressure 147/63 H 152/52 H 167/61 H Pulse Oximetry 99 93 94 Oxygen Delivery Simple Face Mask Simple Face Mask Oxygen Flow Rate 8 8 Intake/Output Intake/Output: Intake & Output 11/04/23 11/05/23 11/06/23 11/07/23 23:59 23:59 23:59 23:59 Intake Total 4170 1000 Output Total 800 Balance 4170 200 Meds/Results Medications: Active Medications Generic Name Dose Route Start Last Admin Trade Name Freq PRN Reason Stop Dose Admin Acetaminophen 325 mg 11/06/23 08:48 11/06/23 20:19 Acetaminophen 325 Mg Tablet PO 325 mg Q4H PRN Administration Mild Pain (1-3) or Fever Aspirin 81 mg 11/06/23 09:
[2023-11-07] MEDS: HYDROcodone/acetaminophen (*CRX) 5-325 MG TABLET 1 TAB PO (17:30)
[2023-11-07] MEDS: LACTATED RINGERS 1,000 ML 100 ML IV CONT (17:31)
[2023-11-07 17:43] LABS: Glucose Point of Care 209 mg/dl (65-105)
[2023-11-07] MEDS: INSULIN ASPART (*BKC) 100 UNITS/ML SUB-Q (17:58)
[2023-11-07] MEDS: ROSUVASTATIN 10 MG TABLET 40 MG PO (20:55)
[2023-11-07] MEDS: HYDROcodone/acetaminophen (*CRX) 7.5-325 MG TABLET 1 TAB PO (21:47)
[2023-11-07 21:58] LABS: Glucose Point of Care 166 mg/dl (65-105)
[2023-11-07] MEDS: INSULIN GLARGINE (*BKC) 100 UNITS/ML 17 UNITS SUB-Q (22:24)
[2023-11-08] VITALS (8 sets, daily range): BP systolic 140–168; BP diastolic 65–73; PULSE 72–77; RESP 14–18; TEMP 36.3–36.9; O2SAT 97–100
[2023-11-08 06:17] LABS: Basophils Percent Auto 0.2 % (0.2-1.2); Eosinophils Absolute Auto 0.1 K/mm3 (0-0.3); Eosinophils Percent Auto 0.6 % (0-4.4); Hematocrit 40.7 % (37.0-47.0); Hemoglobin 13.3 g/dL (12.0-15.0); Immature Granulocyte Absolute 0.06 K/mm3 (0.00-0.031); Immature Granulocyte Percent A 0.4 % (0-0.5); Lymphocytes Absolute Auto 3.72 K/mm3 (0.9-3.2); Lymphocytes Percent Auto 25.2 % (18.3-44.2); Mean Corpuscular HGB Conc 32.7 g/dl (32-36); Mean Corpuscular Hemoglobin 31.8 pg (26-34); Mean Corpuscular Volume 97.4 fl (80-100); Mean Platelet Volume 9.5 fl (7.4-10.4); Monocytes Absolute Auto 1.7 K/mm3 (0.1-0.6); Monocytes Percent Auto 11.3 % (2.6-8.5); Neutrophils Absolute Auto 9.2 K/mm3 (1.3-6.7); Neutrophils Percent Auto 62.3 % (45.5-73.1); Platelet Count Result 285 k/mm3 (150-375); Red Blood Count 4.18 M/mm3 (4.2-5.4); White Blood Count 14.8 K/mm3 (4.5-10.0)
[2023-11-08] MEDS: HYDROcodone/acetaminophen (*CRX) 7.5-325 MG TABLET 1 TAB PO ×3 (06:34→16:08)
[2023-11-08 06:41] LABS: Alanine Aminotransferase 75 U/L (6-35); Albumin Level 3.9 g/dL (3.5-5.1); Alkaline Phosphatase 58 U/L (38-126); Anion Gap 6 mmol/L (4-12); Aspartate Amino Transferase 81 U/L (14-36); Bilirubin,Total 0.8 mg/dL (0.2-1.3); Blood Urea Nitrogen 15 mg/dL (7-17); Calcium 7.9 mg/dL (8.4-10.2); Carbon Dioxide 23 mmol/L (22-30); Chloride 107 mmol/L (98-107); Estimated CRCL calculation 37 ml/min; Estimated Glomerular Filt Rate 50; Glucose 113 mg/dL (65-110); Lipase 229 U/L (23-300); Potassium 3.7 mmol/L (3.4-5.0); Sodium 136 mmol/L (137-145)
[2023-11-08] MEDS: predniSONE 5 MG TABLET PO (08:36)
[2023-11-08] MEDS: DULoxetine HCL 30 MG CAPSULE.DR 90 MG PO (08:36)
[2023-11-08] MEDS: METOPROLOL TARTRATE 12.5 MG TABLET PO ×2 (08:36→20:27)
[2023-11-08] MEDS: MEROPENEM 1 GM/NS 100 ML 1 GM/100 ML BAG IVPB ×2 (08:36→20:27)
[2023-11-08] MEDS: ENOXAPARIN 40 MG/0.4 ML SYRINGE SUB-Q (08:37)
[2023-11-08] MEDS: ASPIRIN 81 MG ENTERIC TABLET PO (08:37)
[2023-11-08] MEDS: FAMOTIDINE 20 MG TABLET PO (08:37)
[2023-11-08 08:45] LABS: Glucose Point of Care 134 mg/dl (65-105)
--- NOTE | 2023-11-08 12:29 | PM.PNGS ---
Progress Note: A&P Assessment and Plan (1) Acute cholecystitis: Code(s): K81.0 - Acute cholecystitis Status: Acute Assessment and Plan: Postop day 1 and doing well. Tolerating her diet. Stable for discharge from a surgical standpoint when okay with primary service. Follow-up with Dr. Lewis in 2 weeks. Low fat diet x 2 weeks. 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 Lewis. Subjective Subjective Date/Time Seen: 11/08/23 12:29 Post Op day: 1 (laparoscopic cholecystectomy) Patient reports: no new complaints, tolerating a regular diet, flatus, no bowel movement and afebrile Interval history: Patient doing well. Incisional pain controlled. Tolerating activity and ambulating to the bathroom. No specific complaints. Exam Const: General: comfortable and no acute distress GI: Inspection: non-distended and incision (incisions dry and intact) GI Palp: Yes Soft to palpation, Yes Tenderness to palpation present (GI) (incisional) and No Guarding due to palpation present (GI) Auscultation: normal bowel sounds Objective Data Vital Signs Vital Signs: Vital Signs - 24 hr 11/07/23 13:56 11/07/23 15:52 11/07/23 16:05 Temperature 99 F 97.5 F L Pulse Rate 77 74 74 Respiratory Rate 16 25 H 23 H Blood Pressure 147/63 H 152/52 H 167/61 H Pulse Oximetry 99 93 94 Oxygen Delivery Simple Face Mask Simple Face Mask Oxygen Flow Rate 8 8 11/07/23 16:20 11/07/23 16:35 11/07/23 17:10 Temperature 97.7 F Pulse Rate 73 76 75 Respiratory Rate 18 16 18 Blood Pressure 166/62 H 156/61 H 161/82 H Pulse Oximetry 98 95 94 Oxygen Delivery Simple Face Mask Room Air Oxygen Flow Rate 8 11/07/23 17:25 11/07/23 17:55 11/07/23 18:43 Temperature 97.5 F L 97.7 F 97.6 F Pulse Rate 77 71 77 Respiratory Rate 18 18 18 Blood Pressure 181/86 H 174/73 H 174/70 H Pulse Oximetry 98 95 96 Oxygen Delivery Oxygen Flow Rate 11/07/23 20:55 11/07/23 23:07 11/08/23 00:00 Temperature 97.9 F 97.4 F L Pulse Rate 75 73 74 Respiratory Rate 18 18 Blood Pressure 139/71 147/73 H Pulse Oximetry 97 97 Oxygen Delivery Oxygen Flow Rate 11/07/23 20:00 11/08/23 03:07 11/08/23 08:00 Temperature 97.9 F 98.0 F Pulse Rate 72 76 Respiratory Rate 18 14 Blood Pressure 168/65 H 163/70 H Pulse Oximetry 97 100 Oxygen Delivery Room Air Oxygen Flow Rate 11/08/23 09:00 Temperature Pulse Rate Respiratory Rate Blood Pressure Pulse Oximetry Oxygen Delivery Room Air Oxygen Flow Rate Intake/Output Intake/Output: Intake & Output 11/05/23 11/06/23 11/07/23 11/08/23 23:59 23:59 23:59 23:59 Intake Total 4170 2030 420 Output Total 800 Balance 4170 1230 420 Meds/Results Medications: Active Medications Generic Name Dose Route Start Last Admin Trade Name Freq PRN Reason Stop Dose Admin Acetaminophen 500 mg 11/07/23 17:22 Acetaminophen 500 Mg Tablet PO Q6H PRN Pain Rated 1-3 Hydrocodone Bitart/Acetaminophen 1 tab 11/07/23 17:22 11/07/23 17:30 Hydrocodone/Acetaminophen (*Crx) 5-325 Mg Tablet PO 1 tab Q4H PRN Administration Pain Rated 4-6 Hydrocodone Bitart/Acetaminophen 1 tab 11/07/23 17:22 11/08/23 12:07 Hydrocodone/Acetaminophen (*Crx) 7.5-325 Mg Tablet PO 1 tab Q4H PRN Administration Pain Rated 7-10 Aspirin 81 mg 11/06/23 09:00 11/08/23 08:37 Aspirin 81 Mg En
[2023-11-08 12:33] LABS: Glucose Point of Care 167 mg/dl (65-105)
--- NOTE | 2023-11-08 13:15 | WPDANESPN ---
Anes - Prog Note Post-Op Date/Time: 11/08/23 13:15 Vital Signs: Last Vital Signs Temp 36.8 C 11/08/23 12:47 Pulse 77 11/08/23 12:47 Resp 16 11/08/23 12:47 BP 147/66 H 11/08/23 12:47 Pulse Ox 100 11/08/23 12:47 O2 Del Method Room Air 11/08/23 09:00 O2 Flow Rate 8 11/07/23 16:20 Pain Score (VAS): 0 I/O: Intake & Output 11/07/23 11/08/23 11/08/23 23:59 07:59 15:59 Intake Total 930 200 340 Balance 930 200 340 Laboratory Tests 11/08/23 05:14 11/08/23 05:14 11/07/23 11/07/23 11/08/23 17:37 21:51 05:14 WBC 14.8 H RBC 4.18 L Hgb 13.3 Hct 40.7 MCV 97.4 MCH 31.8 MCHC 32.7 RDW 13.0 Plt Count 285 MPV 9.5 Immature Gran % (Auto) 0.4 Neut % (Auto) 62.3 Lymph % (Auto) 25.2 [place] % (Auto) 11.3 H Eos % (Auto) 0.6 Baso % (Auto) 0.2 Lymph # (Auto) 3.72 H [place] # (Auto) 1.7 H Eos # (Auto) 0.1 Baso # (Auto) 0.0 Abs Immat Gran (auto) 0.06 H Absolute Neuts (auto) 9.2 H Absolute Nucleated RBC 0.000 Nucleated RBC % 0.0 Sodium 136 L Potassium 3.7 Chloride 107 Carbon Dioxide 23 Anion Gap 6 BUN 15 Creatinine 1.10 H Estim Creat Clear Calc 37 Estimated GFR 50 L Glucose 113 H POC Capillary Glucose 209 H 166 H Calcium 7.9 L Phosphorus 3.0 Total Bilirubin 0.8 AST 81 H ALT 75 H Alkaline Phosphatase 58 Total Protein 7.0 Albumin 3.9 Lipase 229 11/08/23 11/08/23 08:12 12:04 WBC RBC Hgb Hct MCV MCH MCHC RDW Plt Count MPV Immature Gran % (Auto) Neut % (Auto) Lymph % (Auto) [place] % (Auto) Eos % (Auto) Baso % (Auto) Lymph # (Auto) [place] # (Auto) Eos # (Auto) Baso # (Auto) Abs Immat Gran (auto) Absolute Neuts (auto) Absolute Nucleated RBC Nucleated RBC % Sodium Potassium Chloride Carbon Dioxide Anion Gap BUN Creatinine Estim Creat Clear Calc Estimated GFR Glucose POC Capillary Glucose 134 H 167 H Calcium Phosphorus Total Bilirubin AST ALT Alkaline Phosphatase Total Protein Albumin Lipase Microbiology 11/06/23 02:20 Urine Clean Catch Urine Culture - Preliminary Escherichia Coli 11/06/23 12:56 Blood Blood Culture - Preliminary 11/06/23 12:45 Blood Blood Culture - Preliminary Patient Feedback: Patient satisfied with anesthetic care.
--- NOTE | 2023-11-08 14:15 | P.PNIM_ITS ---
Progress Note: A&P Assessment and Plan (1) Pyelitis: Code(s): N12 - Tubulo-interstitial nephritis, not specified as acute or chronic Status: Acute Assessment and Plan: CT imaging concerning for pyelitis of transplanted kidney * WBC 14.8 this am, could be reactive * Cr 1.10, BUN 15 * lactic elevated at 2.0 * blood culture pending * UC showing E.coli, awaiting sensitivities * continue meropenem * d/c fluids with increase in PO * Case discussed with Dr Howard at [facility] transplant (2) Acute cholecystitis: Code(s): K81.0 - Acute cholecystitis Status: Acute Assessment and Plan: * With RUQ pain, CT abdomen and pelvis shows acute cholecystitis * RUQ ultrasound and HIDA scan * general surgery performed lap katerin yesterday and following * meropenem * blood cultures pending * Tylenol PRN for mild pain or fever * morphine 2-4 mg q 4 hours for pain * trialing diet today (3) Acute UTI: Code(s): N39.0 - Urinary tract infection, site not specified Status: Acute Assessment and Plan: UA positive for UTI * meropenem given concerns for pyelitis in renal txp * urine culture showing E.coli (4) Diabetes mellitus: Code(s): E11.9 - Type 2 diabetes mellitus without complications Status: Chronic Assessment and Plan: Last A1C from 01/2023 was 13%. On Lantus 22 units, Novolog 6 units TID with meals, and Trulicity. * a1c 8.1 * Accu checks Q 6 hours while NPO * Low dose NPO SSI insulin * Decreased home Lantus by 20%. Now receiving 17 units nightly. (5) Status post kidney transplant: Code(s): Z94.0 - Kidney transplant status Status: Acute Assessment and Plan: S/P renal transplant at [facility] * continue Envarsus 5 mg XR daily * check Prograf level * continue prednisone 5 mg daily * discussed with transplant life teacher Subjective Date/time seen: 11/08/23 14:15 Interval history: Patient is doing well this morning, but does report increased pain near her RUQ incision. She is passing gas and tolerating small bites of diet. She had a lap katerin yesterday, general surgery is following. Will continue AB therapy and await urine culture results prior to d/c. Review of Systems Review of Systems: All systems reviewed & are unremarkable except as noted in HPI and below Exam Narrative: General: well appearing, appears stated age. HEENT: normocephalic, atraumatic. Mucous membranes moist. EOMI, PERRLA Respiratory: lungs clear to auscultation bilaterally Cardiovascular: RRR, normal S1-S2 upon auscultation. Abdomen: Soft, nondistended and tender to palpation at RUQ. Bowel sounds present to all four quadrants. Extremities: No cyanosis, clubbing, or edema present. Pulses are palpable 2/2. Neuro: Alert and orientated x 4. Cranial nerves 2-12 intact without focal deficit. Skin: Warm, dry, and intact.Incisions closed, dry and well approximated without sign of infection. Psych: pleasant, cooperative, normal speech, normal affect, no hallucinations, no dysarthria Objective Data Vital Signs Vital Signs: Vital Signs - 24 hr 11/07/23 15:52 11/07/23 16:05 11/07/23 16:20 Temperature 97.5 F L Pulse Rate 74 74 73 Respiratory Rate 25 H 23 H 18 Blood Pressure 152/52 H 167/61 H 166/62 H Pulse Oximetry 93 94 98 Oxygen Delivery Simple Face Mask Simple Face Mask Simple Face
--- NOTE | 2023-11-08 14:15 | PM.IMPN ---
Progress Note: A&P Assessment and Plan (1) Pyelitis: Code(s): N12 - Tubulo-interstitial nephritis, not specified as acute or chronic Status: Acute Assessment and Plan: CT imaging concerning for pyelitis of transplanted kidney WBC 14.8 this am, could be reactive Cr 1.10, BUN 15 lactic elevated at 2.0 blood culture pending UC showing E.coli, awaiting sensitivities continue meropenem d/c fluids with increase in PO Case discussed with Dr Howard at [facility] transplant (2) Acute cholecystitis: Code(s): K81.0 - Acute cholecystitis Status: Acute Assessment and Plan: With RUQ pain, CT abdomen and pelvis shows acute cholecystitis RUQ ultrasound and HIDA scan general surgery performed lap katerin yesterday and following meropenem blood cultures pending Tylenol PRN for mild pain or fever morphine 2-4 mg q 4 hours for pain trialing diet today (3) Acute UTI: Code(s): N39.0 - Urinary tract infection, site not specified Status: Acute Assessment and Plan: UA positive for UTI meropenem given concerns for pyelitis in renal txp urine culture showing E.coli (4) Diabetes mellitus: Code(s): E11.9 - Type 2 diabetes mellitus without complications Status: Chronic Assessment and Plan: Last A1C from 01/2023 was 13%. On Lantus 22 units, Novolog 6 units TID with meals, and Trulicity. a1c 8.1 Accu checks Q 6 hours while NPO Low dose NPO SSI insulin Decreased home Lantus by 20%. Now receiving 17 units nightly. (5) Status post kidney transplant: Code(s): Z94.0 - Kidney transplant status Status: Acute Assessment and Plan: S/P renal transplant at [facility] continue Envarsus 5 mg XR daily check Prograf level continue prednisone 5 mg daily discussed with transplant boiler blower Subjective Date/time seen: 11/08/23 14:15 Interval history: Patient is doing well this morning, but does report increased pain near her RUQ incision. She is passing gas and tolerating small bites of diet. She had a lap katerin yesterday, general surgery is following. Will continue AB therapy and await urine culture results prior to d/c. Review of Systems Review of Systems: All systems reviewed & are unremarkable except as noted in HPI and below Exam Narrative: General: well appearing, appears stated age. HEENT: normocephalic, atraumatic. Mucous membranes moist. EOMI, PERRLA Respiratory: lungs clear to auscultation bilaterally Cardiovascular: RRR, normal S1-S2 upon auscultation. Abdomen: Soft, nondistended and tender to palpation at RUQ. Bowel sounds present to all four quadrants. Extremities: No cyanosis, clubbing, or edema present. Pulses are palpable 2/2. Neuro: Alert and orientated x 4. Cranial nerves 2-12 intact without focal deficit. Skin: Warm, dry, and intact.Incisions closed, dry and well approximated without sign of infection. Psych: pleasant, cooperative, normal speech, normal affect, no hallucinations, no dysarthria Objective Data Vital Signs Vital Signs: Vital Signs - 24 hr 11/07/23 15:52 11/07/23 16:05 11/07/23 16:20 Temperature 97.5 F L Pulse Rate 74 74 73 Respiratory Rate 25 H 23 H 18 Blood Pressure 152/52 H 167/61 H 166/62 H Pulse Oximetry 93 94 98 Oxygen Delivery Simple Face Mask Simple Face Mask Simple Face Mask Oxygen Flow Rate 8 8 8 11/07/23 16:35 11/07/23 17:10 11/07/23 17:25 Temperature 97.7 F 97.5 F L Pulse Rate 76 75 77 Respiratory Rate 16 18 18 Blood Pressure 156/61 H 161/82 H 181/86 H Pulse Oximetry 95 94 98 Oxygen Delivery Room Air Oxygen Flow Rate 11/07/23 17:55 11/07/23 18:43 11/07/23 20:55 Temperature 97.7 F 97.6 F Pulse Rate 71 77 75 Respiratory Rate 18 18 Blood Pressure 174/73 H 174/70 H Pulse Oximetry 95 96 Oxygen Delivery Oxygen Flow Rate 11/07/23 23:07 11/08/23 00:00 11/07/23 20:00 Temperature 97.9 F 97.4 F L Pulse Rate
[2023-11-08 17:34] LABS: Tacrolimus Prograf 1.9 mcg/L
[2023-11-08 19:27] LABS: Glucose Point of Care 181 mg/dl (65-105)
[2023-11-08 20:13] LABS: Glucose Point of Care 243 mg/dl (65-105)
[2023-11-08] MEDS: ROSUVASTATIN 10 MG TABLET 40 MG PO (20:26)
[2023-11-08] MEDS: INSULIN GLARGINE (*BKC) 100 UNITS/ML 17 UNITS SUB-Q (20:28)
[2023-11-09 06:00] VITALS: BP 143/67; PULSE 73; RESP 16; TEMP 36.4; O2SAT 98
[2023-11-09 07:26] LABS: Basophils Percent Auto 0.3 % (0.2-1.2); Eosinophils Absolute Auto 0.3 K/mm3 (0-0.3); Eosinophils Percent Auto 2.4 % (0-4.4); Hematocrit 45.7 % (37.0-47.0); Hemoglobin 14.8 g/dL (12.0-15.0); Immature Granulocyte Absolute 0.05 K/mm3 (0.00-0.031); Immature Granulocyte Percent A 0.4 % (0-0.5); Lymphocytes Absolute Auto 3.38 K/mm3 (0.9-3.2); Lymphocytes Percent Auto 25.8 % (18.3-44.2); Mean Corpuscular HGB Conc 32.4 g/dl (32-36); Mean Corpuscular Hemoglobin 31.3 pg (26-34); Mean Corpuscular Volume 96.6 fl (80-100); Mean Platelet Volume 9.1 fl (7.4-10.4); Monocytes Absolute Auto 1.4 K/mm3 (0.1-0.6); Monocytes Percent Auto 10.5 % (2.6-8.5); Neutrophils Percent Auto 60.6 % (45.5-73.1); Platelet Count Result 312 k/mm3 (150-375); Red Blood Count 4.73 M/mm3 (4.2-5.4); Red Cell Distribution Width 12.7 % (11.5-14.5); White Blood Count 13.1 K/mm3 (4.5-10.0)
[2023-11-09 07:41] LABS: Alanine Aminotransferase 59 U/L (6-35); Albumin Level 4.3 g/dL (3.5-5.1); Alkaline Phosphatase 66 U/L (38-126); Anion Gap 8 mmol/L (4-12); Aspartate Amino Transferase 49 U/L (14-36); Bilirubin,Total 0.9 mg/dL (0.2-1.3); Blood Urea Nitrogen 17 mg/dL (7-17); Calcium 8.4 mg/dL (8.4-10.2); Carbon Dioxide 23 mmol/L (22-30); Chloride 104 mmol/L (98-107); Estimated CRCL calculation 34 ml/min; Estimated Glomerular Filt Rate 45; Glucose 152 mg/dL (65-110); Phosphorus 2.4 mg/dL (2.5-4.5); Potassium 3.9 mmol/L (3.4-5.0); Sodium 135 mmol/L (137-145)
[2023-11-09 08:18] LABS: Glucose Point of Care 155 mg/dl (65-105)
--- NOTE | 2023-11-09 08:22 | PM.PNGS ---
Progress Note: A&P Assessment and Plan (1) Acute cholecystitis: Code(s): K81.0 - Acute cholecystitis Status: Acute Assessment and Plan: Postop day 2 and doing well. Tolerating her diet. Stable for discharge from a surgical standpoint when okay with primary service. Follow-up in 2 weeks. Low fat diet x 2 weeks. 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 Pain improving. Exam GI: Inspection: incision (intact with glue) Objective Data Vital Signs Vital Signs: Vital Signs - 24 hr 11/08/23 09:00 11/08/23 12:47 11/08/23 16:58 Temperature 36.8 C 36.8 C Pulse Rate 77 Respiratory Rate 16 Blood Pressure 147/66 H Pulse Oximetry 100 Oxygen Delivery Room Air 11/08/23 17:37 11/08/23 19:07 11/08/23 20:27 Temperature 36.9 C 36.3 C L Pulse Rate 75 76 76 Respiratory Rate 18 18 Blood Pressure 147/70 H 140/70 Pulse Oximetry 99 98 Oxygen Delivery 11/08/23 20:00 11/09/23 06:00 Temperature 36.4 C L Pulse Rate 73 Respiratory Rate 16 Blood Pressure 143/67 H Pulse Oximetry 98 Oxygen Delivery Room Air Intake/Output Intake/Output: Intake & Output 11/06/23 11/07/23 11/08/23 11/09/23 23:59 23:59 23:59 23:59 Intake Total 4170 2030 1130 Output Total 800 Balance 4170 1230 1130 Meds/Results Medications: Active Medications Generic Name Dose Route Start Last Admin Trade Name Freq PRN Reason Stop Dose Admin Acetaminophen 500 mg 11/07/23 17:22 Acetaminophen 500 Mg Tablet PO Q6H PRN Pain Rated 1-3 Hydrocodone Bitart/Acetaminophen 1 tab 11/07/23 17:22 11/07/23 17:30 Hydrocodone/Acetaminophen (*Crx) 5-325 Mg Tablet PO 1 tab Q4H PRN Administration Pain Rated 4-6 Hydrocodone Bitart/Acetaminophen 1 tab 11/07/23 17:22 11/08/23 16:08 Hydrocodone/Acetaminophen (*Crx) 7.5-325 Mg Tablet PO 1 tab Q4H PRN Administration Pain Rated 7-10 Aspirin 81 mg 11/06/23 09:00 11/08/23 08:37 Aspirin 81 Mg Enteric Tablet PO 81 mg DAILY KRISTEL Administration Clopidogrel Bisulfate 75 mg 11/06/23 09:00 Clopidogrel Bisulfate 75 Mg Tablet PO DAILY KRISTEL Dextrose 12.5 gm 11/06/23 08:52 Dextrose 50% 25 Gm/50 Ml Syringe IV PUSH PRN PRN Hypoglycemia Protocol Duloxetine HCl 90 mg 11/06/23 09:00 11/08/23 08:36 Duloxetine Hcl 30 Mg Capsule.Dr PO 90 mg DAILY KRISTEL Administration Enoxaparin Sodium 40 mg 11/07/23 09:00 11/08/23 08:37 Enoxaparin 40 Mg/0.4 Ml Syringe SUB-Q 40 mg DAILY KRISTEL Administration Ergocalciferol 50,000 units 11/11/23 09:00 Ergocalciferol 50,000 Units Capsule PO Bar@0900 [facility] Famotidine 20 mg 11/06/23 09:00 11/08/23 08:37 Famotidine 20 Mg Tablet PO 20 mg DAILY KRISTEL Administration Glucagon 1 mg 11/06/23 08:52 Glucagon For Inj 1 Mg Vial IM PRN PRN Hypoglycemia Protocol Glucose 15 gm 11/06/23 08:52 Glucose Oral Gel 15 Gm Of Glucse In 37.5 Gm Tube PO PRN PRN Hypoglycemia Protocol Dextrose 1,000 mls @ 100 mls/hr 11/06/23 08:52 Dextrose 5% 1,000 Ml IVPB PRN PRN Hypoglycemia Protocol Meropenem 1 gm in 100 mls @ 200 mls/hr 11/06/23 09:30 11/08/23 20:55 IVPB Infused Q12HR [facility] Infusion Insulin Aspart 2 - 5 units 11/08/23 08:00 11/08/23 16:58 Insulin Aspart (*[facility]) 100 Un
[2023-11-09 09:04] VITALS: O2SAT 96
[2023-11-09] MEDS: DULoxetine HCL 30 MG CAPSULE.DR 90 MG PO (09:21)
[2023-11-09] MEDS: ASPIRIN 81 MG ENTERIC TABLET PO (09:21)
[2023-11-09] MEDS: FAMOTIDINE 20 MG TABLET PO (09:21)
[2023-11-09 09:22] VITALS: PULSE 74
[2023-11-09] MEDS: predniSONE 5 MG TABLET PO (09:22)
[2023-11-09] MEDS: METOPROLOL TARTRATE 12.5 MG TABLET PO (09:22)
[2023-11-09] MEDS: AMOXICILLIN/CLAVULANATE K 875-125 MG TAB 1 TABLET PO (09:22)
[2023-11-09] MEDS: ENOXAPARIN 40 MG/0.4 ML SYRINGE SUB-Q (09:23)
[2023-11-09] MEDS: ACETAMINOPHEN 500 MG TABLET PO (09:38)
--- NOTE | 2023-11-09 11:51 | PM.DS ---
DS: Admitting Diagnosis Discharge Date 11/09/23 Admitting Diagnosis abdominal pain DS: Discharge Diagnosis Discharge Diagnosis (1) Pyelitis: Code(s): N12 - Tubulo-interstitial nephritis, not specified as acute or chronic Status: Acute Assessment and Plan: CT imaging concerning for pyelitis of transplanted kidney blood culture pending UC showing E.coli transitioned to PO Augmentin for d/c given kidney history Case discussed with Dr Howard at [facility] transplant (2) Acute cholecystitis: Code(s): K81.0 - Acute cholecystitis Status: Acute Assessment and Plan: With RUQ pain, CT abdomen and pelvis shows acute cholecystitis RUQ ultrasound and HIDA scan general surgery cleared for d/c tolerating low fat diet (3) Acute UTI: Code(s): N39.0 - Urinary tract infection, site not specified Status: Acute Assessment and Plan: UA positive for UTI transitioned to Augmentin urine culture showing E.coli (4) Diabetes mellitus: Code(s): E11.9 - Type 2 diabetes mellitus without complications Status: Chronic (5) Status post kidney transplant: Code(s): Z94.0 - Kidney transplant status Status: Acute Assessment and Plan: S/P renal transplant at 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 She has a PMH of ESRD 2/2 Lupus for which she underwent a right renal transplant 4 years ago at [facility], diabetes type 2, hypertension, MS in 2018 with stents, anxiety and depression, and hyperlipidemia. Admitting CORINA called [facility] team and spoke with Dr. Howard and discussed patient's case with concerns of pyelitis and acute cholecystitis. Dr. Howard states the patient does not require transfer for the pyelitis and it is okay for her to proceed with lap choley should surgery deem it warranted. She recommended meropenem only for antibiotic coverage until cultures result. Continue Envarsus 5 mg daily as well as prednisone 5 mg daily for transplanted kidney. In the ED labs were significant for a leukocytosis of 16.3 with left shift, hemoglobin 15.2, Cr 1.30, BUN 26, glucose 275, AST 44, and ALT 58. Her UA was positive for a UTI. CT of her abdomen and pelvis showed acute cholecystitis with a mildly dilated common bile duct and pyelitis involving the transplant kidney. She underwent HIDA scan which shows acute cholecystitis but no choledocholithiasis. She was admitted in the setting for surgical consult for lap choly and IV antibiotics for pyelonephritis. Status at Discharge Functional status at discharge: independent ambulation Overall status at discharge: patient is progressing back to baseline Time Spent with Patient Time attestation: Total time spent providing and/or coordinating discharge services: Exam Narrative: General: well appearing, appears stated age. HEENT: normocephalic, atraumatic. Mucous membranes moist. EOMI, PERRLA Respiratory: lungs clear to auscultation bilaterally Cardiovascular: RRR, normal S1-S2 upon auscultation. Abdomen: Soft, nondistended and mildly tender to palpation at RUQ. Bowel sounds present to all four quadrants. Extremities: No cyanosis, clubbing, or edema present. Pulses are palpable 2/2. Neuro: Alert and orientated x 4. Cranial nerves 2-12 intact without focal deficit. Skin: Warm, dry, and intact.Incisions closed, dry and well approximated without sign of infection. Psych: pleasant, cooperative, normal speech, normal affect DS: Data Data Completed and Pending Completed studies during hospitalization: Pending at discharge 11/07/23 15:06 Surgical [PTH] Routine Labs on day of discharge: Labs from last 24 hours 11/09/23 11/09/23 11/08/23 08:16 07:13 19:37 WBC 13.1 H RBC
[2023-11-09 11:58] LABS: Glucose Point of Care 158 mg/dl (65-105)
--- NOTE | 2023-11-14 09:02 | PC.NURSE ---
Blood cx are negative.
== END 2023-11-09 12:15 | disposition home or self-care (01) | DRG 418 ==
LOC: ANHED 04:52 → ANH3MEDSUR 05:23
PROVIDERS: Nurse Practitioner Acute Care; Nurse Practitioner Family; Surgery; Admitting Provider Internal Medicine; Emergency Provider Emergency Medicine; PCP Internal Medicine Rheumatology; Visit Provider Nurse Practitioner
PROC: 0FT44ZZ Resection of Gallbladder, Percutaneous Endoscopic Approach (ICD-10-PCS; CPT 47562; principal; 2023-11-07 14:30)
DX: K81.0 Acute cholecystitis (principal); D84.821 Immunodeficiency due to drugs; T86.13 Kidney transplant infection; N10 Acute pyelonephritis; Z94.0 Kidney transplant status; B96.20 Unspecified Escherichia coli [E. coli] as the cause of diseases classified elsewhere; M32.9 Systemic lupus erythematosus, unspecified; E11.22 Type 2 diabetes mellitus with diabetic chronic kidney disease; N18.9 Chronic kidney disease, unspecified; F41.9 Anxiety disorder, unspecified; K83.8 Other specified diseases of biliary tract; Z95.5 Presence of coronary angioplasty implant and graft; Z79.899 Other long term (current) drug therapy; I25.2 Old myocardial infarction
CPT/HCPCS: 36415; 74177; 74183; 76376; 76705; 80053; 80069; 80197; 81001; 82948; 83036; 83605; 83690; 84145; 85025; 86140; 87040; 87077; 87086; 87088; 87186; 87641; 88304; 96361; 96365; 96367; 96375; 96376; 99285; A9270; A9577; G0378; J0696; J1100; J1170; J1650; J1720; J1815; J2185; J2250; J2270; J2405; J2704; J2765; J3010; J3370; J7030; J7120; J7512; Q9967